=== PATIENT | male | born 1935 | race Caucasian/White ===

== ENCOUNTER → 2017-07-25 12:28 | Outpatient (CLI) | payer MEDICARE, SELFPAY ==
--- NOTE | 2017-07-25 | DI.RAD.S_ITS ---
PROCEDURE: XR HAND LT MIN 3V INDICATIONS: PAIN IN LEFT HAND TECHNIQUE: 3 views of the hand(s) acquired. COMPARISON: None. FINDINGS: Bones: No fractures or dislocations. Carpal bones are normally aligned. No suspicious bony lesions. Generalized osteopenia. 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 Moderately severe at the IP joint of the thumb and DIP joints of the fingers. Soft tissues: No suspicious soft tissue calcifications. IMPRESSION: Osteoarthritis Dictated by: Manas Arriaga M.D. on 07/25/2017 at 13:08 Approved by: Manas Arriaga M.D. on 07/25/2017 at 13:10
== END ==
PROVIDERS: Family Provider Internal Medicine; PCP Internal Medicine; Visit Provider Student in an Organized Health Care Education/Training Program
DX: M19.042 Primary osteoarthritis, left hand (principal)
CPT/HCPCS: 73130

== ENCOUNTER 2017-12-07 06:35 | Day surgery (SDC) | payer MEDICARE, SELFPAY ==
[2017-11-30 14:47] VITALS: BMI 24.3
[2017-12-07] VITALS (7 sets, daily range): BP systolic 122–157; BP diastolic 55–74; PULSE 60–79; RESP 12–18; TEMP 36.1–36.2; O2SAT 93–98; BMI 24.3
[2017-12-07] MEDS: LACTATED RINGERS 1,000 ML 42 ML IV (08:27)
--- NOTE | 2017-12-07 08:52 | PM.PREOP ---
Pre-operative Note Interval Note Pre-op Check: Yes History & Physical Reviewed by Physician Changes: No
[2017-12-07] MEDS: CEFAZOLIN 2 GM/100 ML FROZ.PIGGY IV (08:55)
--- NOTE | 2017-12-07 09:22 | SUR.OPER ---
Supine on padded OR bed, head on pillow, arms secured on padded arm boards at <90 degrees abduction, legs uncrossed, safety belt at thigh, tape over blanket over lower legs.
[2017-12-07] MEDS: BUPIVACAINE 0.5% (PF) VIAL 30 ML INJ (09:54)
[2017-12-07] MEDS: SODIUM CHLORIDE IRRIG SOLUTION 250 ML, CEFAZOLIN VIAL 1 GM IRR (09:57)
[2017-12-07] MEDS: LIDOCAINE 1% W/EPI INJ 20 ML INJ (09:57)
--- NOTE | 2017-12-07 10:32 | PM.OP.1 ---
Operative Date/Time/Diagnoses Date of procedure: 12/07/17 Time of procedure: 10:32 Pre-op diagnosis: Bilateral Inguinal Hernias Post-op diagnosis: same Procedure & Clinicians Procedure: Bilateral Inguinal Hernia Repair Same procedure as scheduled: Yes Indications: Enlarging and painful bilateral inguinal hernias limiting the patients lifestyle and activity Surgeon: Jess Simpson Click Yes if Unassisted: Yes Anesthesia Type: General (Goetter) and Local Operative Notes Findings: Two large direct inguinal hernias Closure Type: primary Specimen(s): none sent Implants & Drains: Two large Pro Loop plug and patch implant sets Estimated Blood Loss (mL): 20 Procedure in detail: After obtaining informed consent the patient was brought to the operating room and placed in the supine position on the operating table. Following successful induction of general endotracheal anesthesia, appropriate padding of all bony prominences, and a placement of appropriate monitors, the left groin is prepped and draped in a standard surgical fashion. A timeout was held per protocol. We began the procedure by infiltrating a mixture of local anesthetics medial to the anterior superior iliac spine on the left. Following this, an incision was fashioned in the left groin superior and lateral to the left pubic tubercle. This area was infiltrated with local anesthetic to create a field block. A skin incision was created here and carried down through the skin and subcutaneous tissue to reveal Eduard's fascia below. Eduard's fascia was divided sharply revealing the external oblique aponeurosis below. More local anesthetic was infiltrated in the aponeurosis and it was opened in the direction of its fibers. The spermatic cord and its contents were surrounded and retracted gently using a Dolomite drain. The hernia sac was identified and carefully dissected free from the cord structures. The hernia sac proved to be a portion of colon. This was carefully placed back into the abdominal cavity without injury. A large portion of PROloop mesh was chosen for the repair. The plug was soaked in Ancef solution and deployed into the defect in the internal ring. This was sewn into place with interrupted Vicryl sutures in 2 positions. The overlying mesh layer was sewn to the pubic tubercle with an air knot of Vicryl suture. The lateral leaflets were then carefully placed around the spermatic cord and sewn together with another suture. Tags of the overlying mesh were then tucked under the external oblique aponeurosis. The wound was checked for hemostasis and irrigated with Ancef-containing solution. The edges of the external oblique aponeurosis were approximated and closed with a running Vicryl suture. The wound was irrigated once again and Eduard's fascia was closed with a running suture. Monocryl sutures were placed in the skin. We continued our procedure on the right side with an identical repair. Once again the hernia sac proved to be a portion of colon. This was again reduced without injury and repaired as above with a large Pro Loop plug and patch implant. The wound was again checked for hemostasis and irrigated with warm saline solution. It was aspirated free of all fluid and closed in layers with Vicryl and Monocryl suture. Exofin was applied to both incisions. All sponge, needle, and instrument counts were correct at the conclusion of the case. The patient was allowed to awaken from anesthesia without difficulty and taken to the post anesthesia care unit in good condition. Complications: none Condition: stable Disposition: PACU Plan for aftercare: 1. Discharge to home 2. Follow up with me in 2-3 weeks
--- NOTE | 2017-12-07 11:33 | SUR.PHASEII ---
discharge instructions given to daughter and pt. Both state they understand them. Pt states he feels better than he thought he would. States he feels like going home. pt tolerated 2 cups of pudding and 2 cranberry juices. Iv d/maggie and surgical sites clean and dry upon d/c. Pt d/maggie in wheelchair with daughter. Denies any pain at present time.
== END 2017-12-07 11:30 ==
LOC: OR 06:37
PROVIDERS: Visit Provider Surgery
PROC: (CPT 49505; principal; 2017-12-07 07:45)
DX: K40.20 Bilateral inguinal hernia, without obstruction or gangrene, not specified as recurrent (principal); I10 Essential (primary) hypertension; J44.9 Chronic obstructive pulmonary disease, unspecified; N40.0 Benign prostatic hyperplasia without lower urinary tract symptoms; K21.9 Gastro-esophageal reflux disease without esophagitis; M54.5 Low back pain; M19.90 Unspecified osteoarthritis, unspecified site; G25.0 Essential tremor
CPT/HCPCS: 49505; C1781; J0690; J1100; J2250; J2405; J2704; J3010

== ENCOUNTER → 2017-12-08 13:30 | Outpatient (CLI) | payer MEDICARE, SELFPAY ==
[2017-12-08 14:25] LABS: Hematocrit 35.2 % (41-53)
[2017-12-08 16:08] LABS: Creatinine Urine Random 42.7 mg/dL; Protein (Total) Urine Random 11 mg/dL (0-12); Protein Creatinine Ratio Urine 0.25 GRAM/24H
[2017-12-08 16:09] LABS: BUN Creatinine Ratio 20.7 (6-22); Blood Urea Nitrogen 29 mg/dL (9-20); Carbon Dioxide 30 mmol/L (22-32); Chloride 95 mmol/L (98-107); Estimated Glomerular Filt Rate 48.6 mL/min (>60); Glucose 83 mg/dL (80-110); HEMOLYSIS < 15 (0-50); Potassium 4.5 mmol/L (3.4-5.1); Sodium 134 mmol/L (137-145)
[2017-12-10 16:37] LABS: Parathyroid Hormone Int 38 pg/mL (14-64)
== END ==
PROVIDERS: Family Provider Student in an Organized Health Care Education/Training Program; PCP Student in an Organized Health Care Education/Training Program; Visit Provider Student in an Organized Health Care Education/Training Program
DX: N05.9 Unspecified nephritic syndrome with unspecified morphologic changes (principal); D64.9 Anemia, unspecified; N25.81 Secondary hyperparathyroidism of renal origin; R80.9 Proteinuria, unspecified
CPT/HCPCS: 36415; 80048; 82570; 83970; 84156; 85014; 85018

== ENCOUNTER → 2018-03-21 08:06 | Outpatient (CLI) | payer MEDICARE, SELFPAY ==
--- NOTE | 2018-03-21 | DI.US.S_ITS ---
PROCEDURE: US ABD AORTA ANEURYSM SCREEN INDICATIONS: Personal history of nicotine dependence TECHNIQUE: Real time scanning was performed of the aorta and iliac arteries, with image documentation. COMPARISON: [facility], CT, THORAX WITHOUT CONTRAST, 04/08/2016, 10:38. FINDINGS: Aorta: Aortic atherosclerosis is identified without aneurysmal dilatation. No occlusion is evident. Proximal aortic diameter measures 1.7 cm. Mid-aorta measures 1.3 cm. Distal aortic diameter is 1.2 cm. Iliac arteries: Right common iliac artery measures 0.8 cm. Left common iliac artery measures 0.7 cm. IMPRESSION: Aortic atherosclerosis. No evidence of an abdominal aortic aneurysm. Dictated by: Koko Meredith M.D. on 03/21/2018 at 8:55 Approved by: Koko Meredith M.D. on 03/21/2018 at 8:56
== END ==
PROVIDERS: Family Provider Student in an Organized Health Care Education/Training Program; PCP Student in an Organized Health Care Education/Training Program; Visit Provider Student in an Organized Health Care Education/Training Program
DX: Z13.6 Encounter for screening for cardiovascular disorders (principal); I70.0 Atherosclerosis of aorta; Z87.891 Personal history of nicotine dependence
CPT/HCPCS: 76706

== ENCOUNTER → 2018-04-24 15:57 | Outpatient (CLI) | payer MEDICARE, SELFPAY ==
--- NOTE | 2018-04-24 16:00 | DI.US.S_ITS ---
PROCEDURE: US SOFT TISSUE HEAD AND NECK INDICATIONS: PAIN LOCATED RIGHT ANTERIOR NECK TECHNIQUE: Real-time scanning was performed of the neck region of interest, with image documentation. COMPARISON: None. FINDINGS: In area of right anterior neck pain and swelling wall stick one week ago no sonographic abnormality is seen. Note is made of atherosclerotic calcification of the carotid arteries. IMPRESSION: No sonographic abnormality in the area of prior pain right anterior neck. Please note that there is identified atherosclerotic calcifications at the carotid arteries and depending on the clinical status followup by dedicated carotid ultrasound may be warranted. Dictated by: Zack Gregory M.D. on 04/24/2018 at 16:58 Approved by: Zack Gregory M.D. on 04/24/2018 at 16:58
== END ==
PROVIDERS: Family Provider Student in an Organized Health Care Education/Training Program; PCP Student in an Organized Health Care Education/Training Program; Visit Provider Student in an Organized Health Care Education/Training Program
DX: M54.2 Cervicalgia (principal); R22.1 Localized swelling, mass and lump, neck; I65.23 Occlusion and stenosis of bilateral carotid arteries
CPT/HCPCS: 76536

== ENCOUNTER → 2018-05-02 12:09 | Outpatient (CLI) | payer MEDICARE, SELFPAY ==
--- NOTE | 2018-05-02 | DI.US.S_ITS ---
PROCEDURE: US CAROTID DOPPLER BI INDICATIONS: UNSPECIFIED ATHEROSCLEROSIS TECHNIQUE: Color and pulse Doppler interrogation was performed of both carotid systems, with image documentation and velocity measurements. COMPARISON: [facility], , CAROTID ARTERY DOPPLER BIL, 05/05/2010, 12:26. FINDINGS: Stenosis calculations are based on SRU (Society of Radiologists in Ultrasound) criteria. Right side: Brachial blood pressure: 150/52 mm Hg. Common carotid artery peak systolic velocity: 197 cm/sec. Internal carotid artery peak systolic velocity: 99 cm/sec. Internal carotid artery end diastolic velocity: 19 cm/sec. External carotid artery peak systolic velocity: 95 cm/sec. ICA/CCA peak systolic ratio: 0.5. Linn scale imaging description: Scattered calcified plaque throughout the distal common carotid artery and bifurcation Percent internal carotid artery stenosis: Less than 50%. Vertebral artery: Flow direction is antegrade. Left side: Brachial blood pressure: 146/64 mm Hg. Common carotid artery peak systolic velocity: 104 cm/sec. Internal carotid artery peak systolic velocity: 148 cm/sec. Internal carotid artery end diastolic velocity: 25 cm/sec. External carotid artery peak systolic velocity: 77 cm/sec. ICA/CCA peak systolic ratio: 1.4. Linn scale imaging description: Scattered calcified plaque at the bifurcation and distal common carotid artery Percent internal carotid artery stenosis: 50-69%. Vertebral artery: Flow direction is antegrade. IMPRESSION: 50-69% left ICA stenosis. Less than 50% right ICA stenosis. Dictated by: Kali Ornelas M.D. on 05/02/2018 at 15:22 Approved by: Kali Ornelas M.D. on 05/02/2018 at 15:24
== END ==
PROVIDERS: PCP Student in an Organized Health Care Education/Training Program; Visit Provider Student in an Organized Health Care Education/Training Program
DX: I65.23 Occlusion and stenosis of bilateral carotid arteries (principal)
CPT/HCPCS: 93880

== ENCOUNTER → 2018-06-30 10:05 | Outpatient (CLI) | payer MEDICARE, SELFPAY ==
--- NOTE | 2018-06-30 10:08 | DI.RAD.S_ITS ---
PROCEDURE: XR LUMBAR SPINE MIN 4V INDICATIONS: low back pain TECHNIQUE: 5 views of the lumbar spine were acquired. COMPARISON: [facility], , SPINE LUMB 2 OR 3VW, 07/12/2016, 10:36. [facility], CR, SPINE LUMB 2 OR 3VW, 04/19/2016, 11:05. [facility], , SPINE LUMB 2 OR 3VW, 01/14/2016, 16:17. [facility] [place], CR, SPINE LUMB 2 OR 3VW, 11/27/2015, 14:47. [facility], , L-SPINE 2-3 VIEWS, 12/30/2015, 8:39. FINDINGS: Bones: 5 nonrib-bearing vertebrae are present. There is prominent dextroscoliotic bony alignment. No vertebral body compression fractures. No suspicious bony lesions. There has been prior fusion between L4 and L5, with interbody disc cage prosthesis at L4-5. Fusion devices comprised of transverse pedicle screws and a single vertical fixation yin are centered on the right. Prominent degenerative disc disease and facet osteoarthritis is present from L2-3 inferiorly. Significant spinal and foraminal stenosis again would be expected. Soft tissues: Overlying bowel gas pattern is normal. No suspicious soft tissue calcifications. Oblique images: No pars defects. 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 Prior fusion procedure as discussed, stable over time. Dictated by: Zack Gregory M.D. on 06/30/2018 at 11:04 Approved by: Zack Gregory M.D. on 06/30/2018 at 11:06
== END ==
PROVIDERS: PCP Student in an Organized Health Care Education/Training Program; Visit Provider Physical Medicine & Rehabilitation
DX: M54.5 Low back pain (principal); M51.17 Intervertebral disc disorders with radiculopathy, lumbosacral region; M47.27 Other spondylosis with radiculopathy, lumbosacral region; M41.86 Other forms of scoliosis, lumbar region; M99.83 Other biomechanical lesions of lumbar region; Z98.1 Arthrodesis status
CPT/HCPCS: 72110; 99214

== ENCOUNTER → 2018-07-08 09:44 | Outpatient (CLI) | payer MEDICARE, SELFPAY ==
--- NOTE | 2018-07-08 09:46 | DI.MRI.S_ITS ---
PROCEDURE: MR LUMBAR SPINE WO CON INDICATIONS: eval TECHNIQUE: Noncontrast sagittal T1 spin echo and T2 fast echo, sagittal STIR, axial T1 and T2 fast spin echo through the lumbar spine. In cases with scoliosis, additional coronal T2 fast spin echo may be performed. COMPARISON: [facility], MR, MR LUMBAR SPINE WO CON, 03/24/2015, 10:58. [facility], CR, SPINE LUMB 2 OR 3VW, 07/12/2016, 10:36. FINDINGS: Image quality: Excellent. Alignment and Curvature: There is trace L4-L5 and L5-S1 anterolisthesis. There is approximately 17? of convex-right scoliosis. Bones: Postsurgical changes compatible with L4-L5 right posterior and interbody fusion noted. Reactive endplate changes noted adjacent to the L1-L2, L2-L3-L3-L4, L4-L5 and L5-S1 discs.. No acute vertebral body compression fractures. Spinal Cord: Conus medullaris terminates at the L1-2 disc level. Visualized cord demonstrates normal signal and size. Paraspinous Soft Tissues: No paravertebral masses. L1-L2: Loss of disc signal and height. Mild to moderate diffuse disc bulge. Mild bilateral facet hypertrophy. Mild narrowing of the central canal. Mild right and moderate left neural foraminal narrowing. No neural impingement. L2-L3: Loss of disc signal and height. Moderate, diffuse disc bulge. Mild bilateral facet hypertrophy. Moderate narrowing of the central canal. Moderate right and severe left neural foraminal narrowing with compression of the exiting left L2 nerve root. L3-L4: Loss of disc signal and height. Moderate, diffuse disc bulge. Moderate bilateral facet hypertrophy. Mild to moderate narrowing of the central canal. Severe bilateral neural foraminal narrowing and compression of the exiting L3 nerve roots. L4-L5: Loss of disc signal. Mild, diffuse disc bulge. Mild left and severe right facet hypertrophy. No central stenosis. Severe right and moderate left neural foraminal narrowing with compression of the exiting right L4 nerve root. L5-S1: Loss of disc signal and height. Mild diffuse disc bulge. Moderate bilateral facet hypertrophy. No central stenosis. Severe bilateral neural foraminal narrowing with compression of the exiting L5 nerve roots. IMPRESSION: 1. Convex-right scoliosis. 2. Postsurgical changes. 3. Multilevel degenerative disc disease. 4. Multilevel facet arthropathy. 5. Moderate L2-L3 central canal narrowing. [id number] L3-L4 central canal narrowing. Mild L1-L2 Central canal 6. Severe bilateral L3-L4 and L5-S1 neural foraminal narrowing. Moderate right and severe left L2-L3 neural foraminal narrowing. Severe right and moderate left L4-L5 neural foraminal narrowing. 7. Compression of the exiting left L2 nerve root, the exiting bilateral L3 nerve roots, the exiting right L4 nerve root and the exiting bilateral L5 nerve root secondary to neural foraminal narrowing. Please correlate clinically Dictated by: Esthela Jolley MD, PhD on 07/10/2018 at 15:40 Approved by: Esthela Jolley MD, PhD on 07/10/2018 at 15:47
== END ==
PROVIDERS: PCP Student in an Organized Health Care Education/Training Program; Visit Provider Physical Medicine & Rehabilitation
DX: M51.16 Intervertebral disc disorders with radiculopathy, lumbar region (principal); M51.17 Intervertebral disc disorders with radiculopathy, lumbosacral region; M47.26 Other spondylosis with radiculopathy, lumbar region; M47.27 Other spondylosis with radiculopathy, lumbosacral region; M48.061 Spinal stenosis, lumbar region without neurogenic claudication; M48.07 Spinal stenosis, lumbosacral region; M41.86 Other forms of scoliosis, lumbar region; Z98.1 Arthrodesis status
CPT/HCPCS: 72148

== ENCOUNTER 2018-08-01 13:16 | Outpatient (CLI) | payer MEDICARE, SELFPAY ==
[2018-08-01] VITALS (7 sets, daily range): BP systolic 135–163; BP diastolic 51–86; PULSE 41–50; RESP 16–18; TEMP 36.2; O2SAT 95–100
--- NOTE | 2018-08-01 13:17 | DI.RAD.S_ITS ---
PROCEDURE: PAIN L/S TRANSFORAMINAL INJECT INDICATIONS: SPONDYLOSIS FINDINGS: Fluoroscopic spot filming was performed to verify placement of spinal needles at the L4-L5 level(s), as labeled on the films. Appropriate location(s) of the needle tip(s) was confirmed by injection of iodinated contrast. Dictated by: Kali Ornelas M.D. on 08/01/2018 at 14:59 Approved by: Kali Ornelas M.D. on 08/01/2018 at 14:59
[2018-08-01] MEDS: MIDAZOLAM 5 MG/5 ML VIAL IV (14:10)
[2018-08-01] MEDS: fentaNYL 100 MCG/2 ML INJ 50 MCG IV (14:11)
[2018-08-01] MEDS: IOPAMIDOL 15 ML VIAL 3 ML INJ (14:16)
[2018-08-01] MEDS: BETAMETHASONE 30 MG/5 ML MDV 6 MG INJ (14:16)
[2018-08-01] MEDS: BUPIVACAINE 0.25% (PF) VIAL 2 ML INJ (14:16)
[2018-08-01] MEDS: DEXAMETHASONE 10 MG/ML VIAL 20 MG INJ (14:17)
--- NOTE | 2018-08-01 14:29 | P.PCN_ITS ---
Procedures Date/Time Date of procedure: 08/01/18 Time of procedure: 14:24 General Procedure description: PREOP DIAGNOSIS 1. FORMAINAL STENOSIS WITH LE SYMPTOMS POST OP DIAGNOSIS 1. FORMAINAL STENOSIS WITH LE SYMPTOMS PROCEDURES 1. FLUOROSCOPICALLY GUIDED CONTRAST CONTROLLED TRANSFORAMINAL EPIDURAL STEROID INJECTION - RIGHT L4/5 TFESI PHYSICIAN: Jaswinder Franco DO INDICATIONS: Hardeep is referred by Dr. Cote for treatment of Foraminal Stenosis with Right LE Symptoms FINDINGS Foraminal Nerve Root Compression secondary to disc disease and facet hypertrophy DESCRIPTION OF PROCEDURE: Following denial of allergy and review of potential side effects and complications, including, but not necessarily limited to, infection, allergic reaction, local tissue breakdown, stroke, temporary or permanent nerve injury, paralysis, and possible , the patient indicated that the patient understood and agreed to proceed. An informed consent document was signed by the patient, witnessed by a nurse, and placed in the patient's chart. Additionally, other treatment options including medications, modalities, and physical therapy were reviewed with the patient. After review of previous anaesthesic history and IV conscious sedation the patient was deemed safe to proceed with todays procedure with IV conscious sedation as ASA class II designation. Safety time-out was performed to confirm patient ID, procedure to be performed and site of procedure. IV sedation was accomplished with a combination of 2mg of Versed and 50mcg of Fentanyl was administered by the RN after DO order, titrated to patient comfort during the course of the procedure while the patient remained responsive to all verbal commands In the prone position following sterile prep and drape of the lumbar region, the Right L4/5 posterior neuroforamen was identified fluoroscopically. The skin was anesthetized via a 25-gauge 1.5-inch needle with 1% lidocaine solution. At this point, a 25-gauge 3.5-inch spinal needle was atraumatically introduced and advanced under fluoroscopic guidance through the posterior Right L4/5 neuroforamen to approximately the anterior aspect of the canal. Depth was confirmed on lateral view. Following negative aspiration, injection of approximately 1.5 cc of Isovue 200 under live fluoroscopy in the AP view confirmed excellent flow along the nerve root, into the epidural space without vascular or intrathecal uptake observed Radiological data, including multiple fluoroscopic views of the lumbosacral spine, reveal a spinal needle at the right L4/5 posterior neuroforamen. Subsequent views show flow of contrast material flowing superiorly and inferiorly along the nerve root confirming epidural flow. Subsequently, a test dose of 1.5 cc of 1% lidocaine solution was administered and patient was observed for two minutes for signs or symptoms of complications, including abdominal pain, shortness of breath, bilateral upper or lower extremity weakness, nausea and vomiting, prior to steroid injection. At this point, a total of 2cc or 20mg of dexamethasone was injected without incident. The procedure tolerated the procedure well without signs or symptoms of complications prior to transfer to the recovery area continued monitoring without incident.The patient was then transferred to the recovery area where they were observed for an appropriate time after the injection. The patient reported a VAS score of 7 prior to the procedure and a post- procedure VAS of 0. Total Fluoroscopy Time: 20.9 seconds Total Conscious Sedation Time: 24min POST OP INSTRUCTIONS The patient was provided a Pain Log to continue to record their response to the target-specific procedure prior to follow-up visit with their referring physician. Additionally, specific post-injection care instructions and a contact number to our office were provided if concerns arise regarding possible complications associated with the procedure are suspected. Jaswinder Franco DO Complications: none
--- NOTE | 2018-08-01 15:13 | PC.NURSE ---
pt returned from procedure via wheelchair awake and alert but left leg is numb and he is unable to feel it. Two person minimal assist to get him into the chair from the w/c. REsumed monitoring from Tonia ZUNIGA.
--- NOTE | 2018-08-01 15:29 | PC.NURSE ---
Pt's leg is still a little numb, he can raise his left leg up but when he goes to stand it's still not under him steady. Pt will continue to wait until his feeling comes back. Pt's here with daughter Cheyenne.
--- NOTE | 2018-08-01 16:05 | PC.NURSE ---
Attempted standing patient again at 1350 and he was not able to keep balance without support, says bottom of left foot is still spongy. Then Dr. Franco arrived and tested him out again at 1600. He thought maybe 5-10 minutes more and pt will be able to go.
--- NOTE | 2018-08-01 16:26 | PC.NURSE ---
Pt rechecked at 1615 and is stable to go home, daughter taking him out to eat at [employer], then on home to [facility]. Assiste pt out to car in a wheelchair and he was able to get into the car safely.
== END 2018-08-01 16:29 ==
LOC: RAD 13:17
PROVIDERS: PCP Student in an Organized Health Care Education/Training Program; Visit Provider Physical Medicine & Rehabilitation
DX: M48.061 Spinal stenosis, lumbar region without neurogenic claudication (principal); M51.16 Intervertebral disc disorders with radiculopathy, lumbar region
CPT/HCPCS: 64483; 99152; J0702; J1100; J2250; J3010

== ENCOUNTER → 2018-09-23 13:39 | Outpatient (CLI) | payer OTHER, SELFPAY ==
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
== END ==
PROVIDERS: PCP Student in an Organized Health Care Education/Training Program; Visit Provider Student in an Organized Health Care Education/Training Program
DX: M54.5 Low back pain (principal); M54.32 Sciatica, left side; M51.34 Other intervertebral disc degeneration, thoracic region; M47.816 Spondylosis without myelopathy or radiculopathy, lumbar region; M43.17 Spondylolisthesis, lumbosacral region; M43.16 Spondylolisthesis, lumbar region
CPT/HCPCS: 72072; 72100

== ENCOUNTER → 2018-10-24 11:07 | Outpatient (CLI) | payer OTHER, SELFPAY ==
--- NOTE | 2018-10-24 | DI.RAD.S_ITS ---
PROCEDURE: XR CERVICAL SPINE 4V OR 5V INDICATIONS: NECK PAIN TECHNIQUE: 5 views of the cervical spine acquired. COMPARISON: None. FINDINGS: Bones: No fractures or dislocations to the C7 level. Oblique images demonstrate no bony foraminal stenoses. Severe diffuse disc space narrowing. Multilevel degenerative endplate sclerosis and spurring. Diffuse facet arthropathy. Straightening of the normal lordotic curvature. Grade 1 anterolisthesis of C2 on C3 and C7 on T1. On the right, severe narrowing of the C6-C7 and C7-T1 foramen. There is moderate bony C5-C6 foraminal stenosis. On the left, there is mild bony narrowing of the C3-C4 and C6-C7 foramen Soft tissues: No prevertebral soft tissue swelling. Bilateral carotid calcifications IMPRESSION: Severe multilevel cervical spondylosis and facet arthropathy as above. Bilateral carotid atherosclerosis. Bilateral bony foraminal stenosis as above. Dictated by: Kali Ornelas M.D. on 10/24/2018 at 14:43 Approved by: Kali Ornelas M.D. on 10/24/2018 at 14:45
== END ==
PROVIDERS: PCP Student in an Organized Health Care Education/Training Program; Visit Provider Student in an Organized Health Care Education/Training Program
DX: M54.2 Cervicalgia (principal); M47.812 Spondylosis without myelopathy or radiculopathy, cervical region; M48.02 Spinal stenosis, cervical region; I65.23 Occlusion and stenosis of bilateral carotid arteries
CPT/HCPCS: 72050

== ENCOUNTER 2019-08-14 08:10 | Outpatient (CLI) | payer MEDICARE, SELFPAY ==
[2019-08-14] VITALS (7 sets, daily range): BP systolic 128–168; BP diastolic 56–113; PULSE 48–67; RESP 14–156; TEMP 36.3; O2SAT 96–100
--- NOTE | 2019-08-14 08:36 | DI.RAD.S_ITS ---
PROCEDURE: PAIN L/S TRANSFORAM INJECT BRUNO COMPARISON: None. INDICATIONS: SPONDYLOSIS FINDINGS: Normal needle tip positioning for left-sided L4-5 epidural steroid injection. IMPRESSION: Expected anatomic positioning of left-sided spinal needle tip for epidural steroid injection. Dictated by: Zack Gregory M.D. on 08/14/2019 at 10:58 Approved by: Zack Gregory M.D. on 08/14/2019 at 10:59
[2019-08-14 09:27] LABS: COVID19 -Nasal RAPID Negative (Negative)
[2019-08-14] MEDS: BUPIVACAINE 0.25% (PF) VIAL 2 ML INJ (09:49)
[2019-08-14] MEDS: MIDAZOLAM 5 MG/5 ML VIAL IV (09:49)
--- NOTE | 2019-08-14 10:03 | PM.PROC.1 ---
Procedures Date/Time Date of procedure: 08/14/19 Time of procedure: 10:03 General Procedure description: PREOP DIAGNOSIS 1. FORMAINAL STENOSIS WITH LE SYMPTOMS POST OP DIAGNOSIS 1. FORMAINAL STENOSIS WITH LE SYMPTOMS PROCEDURES 1. FLUOROSCOPICALLY GUIDED CONTRAST CONTROLLED TRANSFORAMINAL EPIDURAL STEROID INJECTION - LEFT L4/5 PHYSICIAN: Jaswinder Franco DO INDICATIONS: Hardeep is referred by Svitlana Vivar for treatment of Foraminal Stenosis with Left LE Symptoms FINDINGS Foraminal Nerve Root Compression secondary to disc disease and facet hypertrophy DESCRIPTION OF PROCEDURE: Following review of allergy and review of potential side effects and complications, including, but not necessarily limited to, infection, allergic reaction, local tissue breakdown, stroke, temporary or permanent nerve injury, paralysis, and possible , the patient indicated that the patient understood and agreed to proceed. An informed consent document was signed by the patient, witnessed by a nurse, and placed in the patient's chart. Additionally, other treatment options including medications, modalities, and physical therapy were reviewed with the patient. After review of previous anaesthesic history and IV conscious sedation the patient was deemed safe to proceed with todays procedure with IV conscious sedation as ASA class II designation. Safety time-out was performed to confirm patient ID, procedure to be performed and site of procedure. IV sedation was accomplished with a combination of 3mg of Versed administered by the RN after DO order, titrated to patient comfort during the course of the procedure while the patient remained responsive to all verbal commands In the prone position following sterile prep and drape of the lumbar region, the left L4/5 posterior neuroforamen was identified fluoroscopically. The skin was anesthetized via a 25-gauge 1.5-inch needle with 1% lidocaine solution. At this point, a 25-gauge 3.5-inch spinal needle was atraumatically introduced and advanced under fluoroscopic guidance through the posterior left L4/5 neuroforamen to approximately the anterior aspect of the canal. Depth was confirmed on lateral view. Following negative aspiration, injection of approximately 1.5 cc of Isovue 200 under live fluoroscopy in the AP view confirmed excellent flow along the nerve root, into the epidural space without vascular or intrathecal uptake observed Radiological data, including multiple fluoroscopic views of the lumbosacral spine, reveal a spinal needle at the left L4/5 posterior neuroforamen. Subsequent views show flow of contrast material flowing superiorly and inferiorly along the nerve root confirming epidural flow. Subsequently, a test dose of 1.5 cc of 1% lidocaine solution was administered and patient was observed for two minutes for signs or symptoms of complications, including abdominal pain, shortness of breath, bilateral upper or lower extremity weakness, nausea and vomiting, prior to steroid injection. At this point, a total of 3cc or 20mg of dexamethasone and 6mg of betamethasone was injected without incident. The procedure tolerated the procedure well without signs or symptoms of complications prior to transfer to the recovery area continued monitoring without incident. The patient was then transferred to the recovery area where they were observed for an appropriate time after the injection. The patient reported a VAS score of 7 prior to the procedure and a post-procedure VAS of 0. Total Fluoroscopy Time: 6 seconds Total Conscious Sedation Time: 24min POST OP INSTRUCTIONS The patient was provided a Pain Log to continue to record their response to the target-specific procedure prior to follow-up visit with their referring physician. Additionally, specific post-injection care instructions and a contact number to our office were provided if concerns arise regarding possible complications associated with the procedure are suspected. Jaswinder Franco DO Complications: none
[2019-08-14] MEDS: IOPAMIDOL 15 ML VIAL 3 ML INJ (10:12)
[2019-08-14] MEDS: BETAMETHASONE 30 MG/5 ML MDV 6 MG INJ (10:13)
[2019-08-14] MEDS: DEXAMETHASONE 10 MG/ML VIAL 20 MG INJ (10:13)
--- NOTE | 2019-08-14 10:18 | PC.NURSE ---
Pt tolerated procedure well, assisted pt off table to and transported to Pre procedure room for continued monitoring by NADIA Mcguire
== END 2019-08-14 10:25 | disposition home or self-care (01) ==
PROVIDERS: Registered Nurse; PCP Student in an Organized Health Care Education/Training Program; Referring Provider Physical Medicine & Rehabilitation; Visit Provider Physical Medicine & Rehabilitation
DX: Z11.59 Encounter for screening for other viral diseases (principal); M48.061 Spinal stenosis, lumbar region without neurogenic claudication; M51.16 Intervertebral disc disorders with radiculopathy, lumbar region
CPT/HCPCS: 64483; 87635; 99152; J0702; J1100; J2250; J3010

== ENCOUNTER 2019-09-13 13:45 | Emergency (ER) | payer MEDICARE, SELFPAY ==
--- NOTE | 2019-09-13 13:55 | ED_ITS ---
HPI - Wound/Laceration <Mili Gonzalez PA-C - Last Filed: 09/13/19 15:07> General Chief Complaint: Wound/Laceration Stated Complaint: cut on index fingerr left hand Time Seen by Provider: 09/13/19 13:47 Source: patient Mode of arrival: Ambulatory Limitations: no limitations History of Present Illness HPI narrative: This is a well-appearing ambulatory and alert 84-year-old with an extensive medical history, who presents with an isolated complaint of a laceration to his left index finger. He said this happened around noon today when he was slicing an apple and ?the Apple won; well actually the apple-core won!? He says he was using a regular kitchen knife, and it did not bleed a whole lot because he immediately put direct pressure on the area. He covered it with a Band-Aid. He says that he went to the local clinic in [place] but they were closed because it was lunchtime he then decided to come here. He has very little pain and does not want any pain medicine today. He notes he is supposed to go fishing in 10 days for a long trip and hopes that he will be healed by then, he also asks for a finger caught or something he can use so that he can continue to do dishes and take care of these sorts of tasks at home while he is healing. He denies any numbness, tingling, difficulty with range of motion of the affected digit, significant blood loss or any other symptoms, this is an isolated complaint he has no other complaints or concerns today. He states that he last time he was at his primary care doctor they recommended he get a tetanus shot and he was planning to do this at the drug store but he did not yet. Onset (ago): hour(s) (2) Location: other (Finger) Extremity Location: Left: hand (Index finger) Place: home Patient tetanus UTD: No Context: accidental Associated symptoms: pain Treatments prior to arrival: other (Direct pressure and Band-Aid) Related Data Home Medications Medication Instructions Recorded Confirmed alendronate 70 mg PO QWEEK #0 tab 12/18/15 09/12/19 prednisone 2 mg PO QAM #0 12/18/15 09/12/19 tofacitinib 10 mg tablet 10 mg PO ONCE tab 11/25/17 09/12/19 tofacitinib [Xeljanz XR] 11 mg PO DAILY 11/30/17 09/12/19 tamsulosin 0.4 mg capsule 0.8 mg PO QPM #0 cap 12/20/17 09/12/19 Fish Oil 1,400 mg PO DAILY 07/24/18 09/12/19 losartan 50 mg tablet 100 mg PO QDAY #0 tab 07/24/18 09/12/19 vitamin d with calcium 600 mg PO .qday 07/24/18 09/12/19 acetaminophen 500 mg tablet 1,000 mg PO Q6H PRN 08/16/18 09/12/19 cbd oil TOPICAL 11/15/18 09/12/19 cbd tinture SUBLINGUAL 11/15/18 09/12/19 fluticasone propionate 115 INHALATION 09/12/19 09/12/19 mcg-salmeterol 21 mcg/actuation HFA inhaler Previous Rx's Medication Instructions Recorded cephalexin [Keflex] 500 mg PO TID #15 cap 09/15/19 Allergies Allergy/AdvReac Type Severity Reaction Status Date / Time azithromycin [AZITHROMYCIN] AdvReac Severe GI UPSET, Verified 09/13/19 14:00 DIARRHEA levofloxacin [LEVOFLOXACIN] AdvReac Severe LT Verified 09/13/19 14:00 ACHILLES TENDINITIS/Weakness meloxicam [MELOXICAM] AdvReac Intermediate RECTAL Verified 09/13/19 14:00 BLEEDING, GI UPSET doxycycline AdvReac Unknown GI upset, Verified 09/13/19 14:00 diarrhea Review of Systems <Mili Gonzalez PA-C - Last Filed: 09/13/19 15:07> Review of Systems Narrative: GENERAL: Denies chills, fatigue, malaise, fever, sweats. HEENT: Denies sinus pain, ear pain, sore throat, difficulty swallowing, dizziness. RESPIRATORY: Denies dyspnea, cough, wheezing, hemoptysis, sputum. CARDIOVASCULAR: Denies chest pain, palpitations, orthopnea, edema, GASTROINTESTINAL: Denies nausea, vomiting, abdominal pain, diarrhea, constipation, melena. : Denies dysuria, frequency, incontinence, hematuria, urinary retention. MUSCULOSKELETAL: denies weakness, joint pain, or bony pain SKIN: Positive for a laceration to his left index finger not affecting the nail. Denies rash, skin lesions, or other NEUROLOGIC: Denies weakness, headache, numbness, change in speech, confusion, seizures, incoordination. PSYCHIATRIC: No concerning psychosocial issues. 12 point review of systems is negative except for those stated above Patient History <Mili Gonzalez PA-C - Last Filed: 09/13/19 15:07> Medical History Anemia (Chronic) Arthritis (Acute) Fan's esophagus (Chronic) Basal cell carcinoma (Inactive) Benign prostatic hyperplasia (Chronic) Bladder neoplasm (Resolved) Carotid stenosis, bilateral (Chronic) Cervical spine degeneration (Chronic) Constipation (Acute) COPD (chronic obstructive pulmonary disease) (Chronic) Cough (Acute) Eczema (Acute) Edema (Acute) Enlarged prostate (Acute) Essential tremor (Chronic) Gastroesophageal reflux disease (Chronic) History of bladder cancer (Acute) History of pneumonia (Acute) Hyperlipidemia (Chronic) Hypertension (Chronic) Impaired vision (Acute) Kidney stones (Acute) Low back pain (Acute) Lumbar stenosis (Chronic) Osteoarthritis (Chronic) Osteoporosis (Chronic) PSA elevation (Chronic) Psoriasis (Chronic) Psoriatic arthritis (Chronic) Shortness of breath (Acute) Sinus drainage (Acute) TIA (transient ischemic attack) (Acute) Urinary frequency (Acute) Surgical History History of back surgery (Acute) History of carpal tunnel release (Inactive) History of knee surgery (Inactive) History of lumbar surgery (Inactive) History of thumb surgery (Acute) History of total knee arthroplasty (Acute) History of total right knee replacement (Inactive) Status post left rotator cuff repair (Inactive) Status post right rotator cuff repair (Inactive) Social History marital status: unmarried,single number of children: 5 household members: none lives independently: Yes caregiver/support person: No occupational status: other 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 Well-nourished, well-developed patient, in mild distress. HEAD: Atraumatic. Normocephalic. EYES: Pupils equal round and reactive. Extraocular motions intact. No scleral icterus. No injection or drainage. ENT: Nose without bleeding, purulent drainage. Throat without erythema, tonsillar hypertrophy or exudate. Airway patent. NECK: Trachea midline. Non tender CARDIOVASCULAR: Regular rate and rhythm without murmurs, gallops, or rubs. RESPIRATORY: Clear to auscultation. Breath sounds equal bilaterally. No wheezes, rales, or rhonchi. GASTROINTESTINAL: Abdomen soft, non-tender, nondistended. EXTREMITIES: Range of motion of the affected extremities intact, slightly delayed due to pain and discomfort. Capillary refill of the affected extremity and finger is less than 2 seconds. No edema or joint tenderness. Distal pulses are intact and equal. BACK: Nontender without deformity or crepitance. No flank tenderness. NEURO: AOx3. Sensation is intact in the affected extremity SKIN: There is a curvilinear laceration approximately 2.5 cm in length on the posterior 2nd finger of the left hand; it is proximal to the nail and DIP joint not crossing the DIP. No other rash or erythema of visible areas. Initial Vital Signs Initial Vital Signs: Vital Signs Temperature 98.0 F 09/13/19 13:58 Pulse Rate 61 09/13/19 13:58 Respiratory Rate 16 09/13/19 13:58 Blood Pressure 180/75 H 09/13/19 13:58 Pulse Oximetry 98 09/13/19 13:58 <Luciana Molina DO - Last Filed: 09/18/19 07:47> Initial Vital Signs Initial Vital Signs: Vital Signs Temperature 98.0 F 09/13/19 13:58 Pulse Rate 61 09/13/19 13:58 Respiratory Rate 16 09/13/19 13:58 Blood Pressure 180/75 H 09/13/19 13:58 Pulse Oximetry 98 09/13/19 13:58 Procedures <Mili Gonzalez PA-C - Last Filed: 09/13/19 15:07> Laceration Repair Laceration 1: Site: hand (index finger) Side (If applicable): left Size (cm): 2.5 Description: linear (curvilinear) Depth: simple, single layer Local Anesthetic: lidocaine 1% and with bicarb Amount of anesthesia used (mL): 7 Pre-repair: wound explored, irrigated extensively and deep structures intact Skin layer closed with: nylon Size (cm): 5-0 Number of sutures: 5 Technique: simple, interrupted Scores <Mili Gonzalez PA-C - Last Filed: 09/13/19 15:07> GCS Maribel coma scale eye opening: Spontaneous Maribel coma scale verbal response: Orientated [place] coma scale motor response: Obey commands Maribel coma scale total score: 15 Course <Mili Gonzalez PA-C - Last Filed: 09/13/19 15:07> Orders Ordered: Discontinued Medications Diphtheria/Tetanus/Acell Pertussis (Adacel) 0.5 ml IM .ONCE ONE Stop: 09/13/19 14:22 Last Admin: 09/13/19 14:23 Dose: 0.5 ml Documented by: MINISTERIO Lidocaine/Sodium Bicarbonate (Buffered Lidocaine 10 Ml Syr) 10 ml INJ NOW ONE Stop: 09/13/19 14:07 Last Admin: 09/13/19 14:23 Dose: 10 ml Documented by: MINISTERIO Tetanus/Diphtheria Toxoids (Td) 0.5 ml IM .ONCE ONE Stop: 09/13/19 14:07 Last Admin: 09/13/19 14:23 Dose: Not Given Documented by: MINISTERIO Vital Signs Vital signs: Vital Signs - 8 hr 09/13/19 13:58 Temperature 98.0 F Pulse Rate 61 Respiratory Rate 16 Blood Pressure 180/75 H Pulse Oximetry 98 <Luciana Molina DO - Last Filed: 09/18/19 07:47> Orders Ordered: Discontinued Medications Diphtheria/Tetanus/Acell Pertussis (Adacel) 0.5 ml IM .ONCE ONE Stop: 09/13/19 14:22 Last Admin: 09/13/19 14:23 Dose: 0.5 ml Documented by: MINISTERIO Lidocaine/Sodium Bicarbonate (Buffered Lidocaine 10 Ml Syr) 10 ml INJ NOW ONE Stop: 09/13/19 14:07 Last Admin: 09/13/19 14:23 Dose: 10 ml Documented by: MINISTERIO Tetanus/Diphtheria Toxoids (Td) 0.5 ml IM .ONCE ONE Stop: 09/13/19 14:07 Last Admin: 09/13/19 14:23 Dose: Not Given Documented by: MINISTERIO Vital Signs Vital signs: Vital Signs - 8 hr 09/13/19 13:58 Temperature 98.0 F Pulse Rate 61 Respiratory Rate 16 Blood Pressure 180/75 H Pulse Oximetry 98 MDM - Wound/Laceration <Mili Gonzalez PA-C - Last Filed: 09/13/19 15:07> Differential Diagnosis Differential diagnosis: Likely laceration and other (Risk of infection, tendon injury, bone injury, vascular injury, nerve injury) Medical Records Attestation: I reviewed the patient's medical records. Imaging Data Extremity x-ray #1: Attestation: I personally reviewed and interpreted this imaging study as follows: Radiologist's Impression: [address] [address] XRay Report Signed Patient: Hardeep Rosado FMR#: [id number] : [id number] Age/Sex: 84 / MDate of Service: 09/13/19 Loc: ED Accession Number: [id number] Procedure: XR finger LT min 2V Ordering Provider: Mili Gonzalez P.A-C PROCEDURE: XR FINGER LT MIN 2V INDICATIONS: laceration TECHNIQUE: AP hand, 2 views of the second finger(s) acquired. COMPARISON: None. FINDINGS: Bones: No fractures or dislocations. Moderate to severe osteoarthritic changes throughout interphalangeal joints and first CMC joint are seen. There are features suggestive of erosive osteoarthritis in second and third DIP joints. No suspicious bony lesions. Soft tissues: No suspicious soft tissue calcifications. Soft tissue swelling surrounding second distal interphalangeal joint is seen. No radiopaque foreign body. IMPRESSION: Osteoarthritic changes in left hand and wrist as above. No acute second digit fracture or dislocation. No radiopaque foreign body. Dictated by: Aitlio Nolen M.D. on 09/13/2019 at 14:17 Approved by: Atilio Nolen M.D. on 09/13/2019 at 14:18 [facility] Narrative Medical decision making narrative: This is an 84-year-old gentleman with significant medical history who presents to the emergency department with isolated complaints of a laceration to his left index finger sustained accidentally at home today from a kitchen knife with bleeding controlled immediately. Differential diagnoses considered include laceration vascular injury, nerve injury, bony injury, tendon injury, risk of infection, encounter for tetanus vaccination. I have low concern for injury to bone or tendon sheath. X-ray obtained, laceration cleaned, explored and repaired as above, Tdap given. Patient to follow-up with PCP for suture removal in 7-10 days and re-evaluation, emergency return precautions were discussed, all questions answered. Discharge Plan Departure Patient Disposition: Home Clinical Impression: Laceration of left index finger w/o foreign body w/o damage to nail Qualifiers: Encounter type: initial encounter Qualified Code(s): S61.211A - Laceration without foreign body of left index finger without damage to nail, initial encounter Discharge Date/Time: 09/13/19 15:13 Instructions: How to Care for a Laceration After Repair, DI for Laceration Repair Activity Restrictions/Additional Instructions: You for allowing us to be part of your care in the emergency department today. There is no evidence of an emergent or life threatening illness at this time, but follow up with your doctor in 1-2 days is recommended nonetheless to continue to rule out serious underlying causes of your symptoms. Please call the office for an appointment. Please return to the Emergency Department for any worsening or persistent symptoms. Please take medications as directed. Please follow-up with your primary care physician in 7-10 days for suture removal, also advise you follow-up in the next 2-5 days as needed for re-evaluation. Please try to keep the area dry and avoid soaking baths, you can use antibiotic ointment and a loose Band-Aid for the 1st few days I also recommend that you use the finger splint provided to remind you not to over stress the area where you have your sutures with too much movement. Please see the attached instructions and information regarding care of sutures and lacerations. If you develop numbness, tingling, increasing swelling, pallor, redness, heat in the area of your injury, nausea, vomiting, diarrhea, fever, chills, or any other symptoms of concern to you please do not hesitate to seek medical care immediately. Prescriptions: No Action alendronate 70 MG tablet 70 mg PO QWEEK Qty: 0 RF: 0 prednisone 1 MG tablet 2 mg PO QAM Qty: 0 RF: 0 tamsulosin [Flomax] 0.4 mg capsule 0.8 mg PO QPM Qty: 0 RF: 0 losartan 50 mg tablet 100 mg PO QDAY Qty: 0 RF: 0 tofacitinib [Xeljanz] 10 mg tablet 10 mg PO ONCE RF: 0 tofacitinib [Xeljanz XR] 11 mg Tablet Extended Release 24 Hr 11 mg PO DAILY RF: 0 Fish Oil 1,400 mg PO DAILY RF: 0 cephalexin [Keflex] 500 mg capsule 500 mg PO TID Qty: 15 RF: 0 acetaminophen [Tylenol Extra Strength] 500 mg tablet 1,000 mg PO Q6H PRNRF: 0 cbd oil topical RF: 0 cbd tinture sublingual RF: 0 Advair HFA 115-21 mcg/actuation HFA aerosol inhaler INHALATION RF: 0 vitamin d with calcium 600 mg PO .qday RF: 0 Referrals: Macrina Vivar PA-C [Primary Care Provider] - <Luciana Molina DO - Last Filed: 09/18/19 07:47> Cosign ED Attending Ori Attestation: I was immediately available in the department for consultation. Documentation has been reviewed. I agree with assessment and plan.
[2019-09-13 13:58] VITALS: BP 180/75; PULSE 61; RESP 16; TEMP 36.7; O2SAT 98; BMI 24.0
--- NOTE | 2019-09-13 14:00 | DI.RAD.S_ITS ---
PROCEDURE: XR FINGER LT MIN 2V INDICATIONS: laceration TECHNIQUE: AP hand, 2 views of the second finger(s) acquired. COMPARISON: None. FINDINGS: Bones: No fractures or dislocations. Moderate to severe osteoarthritic changes throughout interphalangeal joints and first CMC joint are seen. There are features suggestive of erosive osteoarthritis in second and third DIP joints. No suspicious bony lesions. Soft tissues: No suspicious soft tissue calcifications. Soft tissue swelling surrounding second distal interphalangeal joint is seen. No radiopaque foreign body. IMPRESSION: Osteoarthritic changes in left hand and wrist as above. No acute second digit fracture or dislocation. No radiopaque foreign body. Dictated by: Atilio Nolen M.D. on 09/13/2019 at 14:17 Approved by: Atilio Nolen M.D. on 09/13/2019 at 14:18
[2019-09-13] MEDS: LIDO 1%/SOD BICARB 8.4% (10ML) 10 ML SYRINGE INJ (14:23)
[2019-09-13] MEDS: TET,DIPH,PERTUSS(ACELL),VAC/PF 0.5 ML SYRINGE IM (14:23)
[2019-09-13 15:13] VITALS: BP 173/70; PULSE 50; RESP 16; O2SAT 99
== END 2019-09-13 15:13 | disposition home or self-care (01) ==
PROVIDERS: Emergency Provider Student in an Organized Health Care Education/Training Program; PCP Student in an Organized Health Care Education/Training Program
DX: S61.211A Laceration without foreign body of left index finger without damage to nail, initial encounter (principal); W26.0XXA Contact with knife, initial encounter; Z23 Encounter for immunization
CPT/HCPCS: 12001; 73140; 90471; 99283; 99284; 90715

== ENCOUNTER 2019-09-15 13:37 | Emergency (ER) | payer MEDICARE, SELFPAY ==
[2019-09-15 13:54] VITALS: BP 151/72; PULSE 51; RESP 17; TEMP 36.6; O2SAT 98
[2019-09-15 14:36] VITALS: BP 167/70; PULSE 57; O2SAT 95
--- NOTE | 2019-09-15 17:16 | ED.RECABL ---
HPI - Recheck/Abnormal Lab/Rx General Chief Complaint: Recheck/Abnormal Lab/Rx Stated Complaint: Possible infection in stitched L index finger Time Seen by Provider: 09/15/19 13:53 Source: patient Mode of arrival: Family Vehicle Limitations: no limitations History of Present Illness HPI narrative: CC:Wound Check HPI: The patient is an 84-year-old male who a couple days ago cut his left index finger with a knife while he was trying to cut the coracoid an apple. He came into the emergency department to have the laceration evaluated and repaired. He states that he did not think it was clean completely and was sutured. Today he took the dressing off an it appeared to be a little bit red and warm to him. There was no bleeding no pustular drainage. He came into the emergency department to have it checked for an infection. He denied any fever chills or sweats as well as any chest pain cough shortness of breath or abdominal pain nausea vomiting or urinary symptoms. Related Data Home Medications Medication Instructions Recorded Confirmed alendronate 70 mg PO QWEEK #0 tab 12/18/15 09/12/19 prednisone 2 mg PO QAM #0 12/18/15 09/12/19 tofacitinib 10 mg tablet 10 mg PO ONCE tab 11/25/17 09/12/19 tofacitinib [Xeljanz XR] 11 mg PO DAILY 11/30/17 09/12/19 tamsulosin 0.4 mg capsule 0.8 mg PO QPM #0 cap 12/20/17 09/12/19 Fish Oil 1,400 mg PO DAILY 07/24/18 09/12/19 losartan 50 mg tablet 100 mg PO QDAY #0 tab 07/24/18 09/12/19 vitamin d with calcium 600 mg PO .qday 07/24/18 09/12/19 acetaminophen 500 mg tablet 1,000 mg PO Q6H PRN 08/16/18 09/12/19 cbd oil TOPICAL 11/15/18 09/12/19 cbd tinture SUBLINGUAL 11/15/18 09/12/19 fluticasone propionate 115 INHALATION 09/12/19 09/12/19 mcg-salmeterol 21 mcg/actuation HFA inhaler Previous Rx's Medication Instructions Recorded cephalexin [Keflex] 500 mg PO TID #15 cap 09/15/19 Allergies Allergy/AdvReac Type Severity Reaction Status Date / Time azithromycin [AZITHROMYCIN] AdvReac Severe GI UPSET, Verified 09/13/19 14:00 DIARRHEA levofloxacin [LEVOFLOXACIN] AdvReac Severe LT Verified 09/13/19 14:00 ACHILLES TENDINITIS/Weakness meloxicam [MELOXICAM] AdvReac Intermediate RECTAL Verified 09/13/19 14:00 BLEEDING, GI UPSET doxycycline AdvReac Unknown GI upset, Verified 09/13/19 14:00 diarrhea Review of Systems Review of Systems Narrative: Review of systems were all negative except for those mentioned in the history of present illness. Patient History Medical History Anemia (Chronic) Arthritis (Acute) Fan's esophagus (Chronic) Basal cell carcinoma (Inactive) Benign prostatic hyperplasia (Chronic) Bladder neoplasm (Resolved) Carotid stenosis, bilateral (Chronic) Cervical spine degeneration (Chronic) Constipation (Acute) COPD (chronic obstructive pulmonary disease) (Chronic) Cough (Acute) Eczema (Acute) Edema (Acute) Enlarged prostate (Acute) Essential tremor (Chronic) Gastroesophageal reflux disease (Chronic) History of bladder cancer (Acute) History of pneumonia (Acute) Hyperlipidemia (Chronic) Hypertension (Chronic) Impaired vision (Acute) Kidney stones (Acute) Low back pain (Acute) Lumbar stenosis (Chronic) Osteoarthritis (Chronic) Osteoporosis (Chronic) PSA elevation (Chronic) Psoriasis (Chronic) Psoriatic arthritis (Chronic) Shortness of breath (Acute) Sinus drainage (Acute) TIA (transient ischemic attack) (Acute) Urinary frequency (Acute) Surgical History History of back surgery (Acute) History of carpal tunnel release (Inactive) History of knee surgery (Inactive) History of lumbar surgery (Inactive) History of thumb surgery (Acute) History of total knee arthroplasty (Acute) History of total right knee replacement (Inactive) Status post left rotator cuff repair (Inactive) Status post right rotator cuff repair (Inactive) Social History marital status: unmarried,single number of children: 5 household members: none lives independently: Yes caregiver/support person: No occupational status: other 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 Does not appear toxic or ill. HEAD: AT/NC EENT: PERRL, FROM of eyes, EXTREMITIES: The laceration is approximately 1.5 cm curvilinear located over the radial aspect of his left index finger. The margins are well opposed. The edges of the laceration are minimally erythematous without any drainage. I did not appreciate any warmth but there was mild swelling and mild plus-minus tenderness. SKIN: No rash, bruising, petechiae or purpura. Located over the hands and arms. NEURO: Awake, alert, oriented, conversive, cranial nerves II-XII are symmetrical , moves all 4 extremities and is ambulatory. MENTAL HEALTH: Does not appear anxious or depressed. Initial Vital Signs Initial Vital Signs: Vital Signs Temperature 97.8 F 09/15/19 13:54 Pulse Rate 51 L 09/15/19 13:54 Respiratory Rate 17 09/15/19 13:54 Blood Pressure 151/72 H 09/15/19 13:54 Pulse Oximetry 98 09/15/19 13:54 Course Vital Signs Vital signs: Vital Signs - 8 hr 09/15/19 13:54 09/15/19 14:36 Temperature 97.8 F Pulse Rate 51 L 57 L Respiratory Rate 17 Blood Pressure 151/72 H 167/70 H Pulse Oximetry 98 95 Discharge Plan Departure Patient Disposition: Home Clinical Impression: Visit for wound check, Wound infection Discharge Date/Time: 09/15/19 14:44 Instructions: DI for Wound Infection Activity Restrictions/Additional Instructions: 1. Now you are able to wash your finger with the laceration in a shower or sink with running water and soap. Pat dry. Apply a thin film of the mupirocin ointment morning and night with a Q-tip and cover with a bandaid. 2. For any pain and discomfort you can take 2 to 3 200 mg ibuprofen tablets every 6 hours. 3. Take the Keflex 500 mg 3 times a day for the next 5 days. 4. If the finger becomes more swollen, more red, draining fluid or becomes excessively tender you need to return to the emergency department. 5. Otherwise follow-up with your doctors to have the sutures removed as previously scheduled. Prescriptions: New cephalexin [Keflex] 500 mg capsule 500 mg PO TID Qty: 15 RF: 0 No Action alendronate 70 MG tablet 70 mg PO QWEEK Qty: 0 RF: 0 prednisone 1 MG tablet 2 mg PO QAM Qty: 0 RF: 0 tamsulosin [Flomax] 0.4 mg capsule 0.8 mg PO QPM Qty: 0 RF: 0 losartan 50 mg tablet 100 mg PO QDAY Qty: 0 RF: 0 tofacitinib [Xeljanz] 10 mg tablet 10 mg PO ONCE RF: 0 tofacitinib [Xeljanz XR] 11 mg Tablet Extended Release 24 Hr 11 mg PO DAILY RF: 0 Fish Oil 1,400 mg PO DAILY RF: 0 acetaminophen [Tylenol Extra Strength] 500 mg tablet 1,000 mg PO Q6H PRNRF: 0 cbd oil topical RF: 0 cbd tinture sublingual RF: 0 Advair HFA 115-21 mcg/actuation HFA aerosol inhaler INHALATION RF: 0 vitamin d with calcium 600 mg PO .qday RF: 0 Referrals: Macrina Vivar PA-C [Primary Care Provider] -
== END 2019-09-15 14:44 | disposition home or self-care (01) ==
PROVIDERS: Emergency Provider Emergency Medicine; PCP Student in an Organized Health Care Education/Training Program
DX: T81.49XA Infection following a procedure, other surgical site, initial encounter (principal)
CPT/HCPCS: 99281

== ENCOUNTER 2019-12-01 15:19 | Emergency (ER) | payer MEDICARE, SELFPAY ==
[2019-12-01] VITALS (12 sets, daily range): BP systolic 159–199; BP diastolic 71–98; PULSE 47–60; RESP 9–27; TEMP 36.6; O2SAT 95–99; BMI 24.0
--- NOTE | 2019-12-01 15:31 | DI.RAD.S_ITS ---
PROCEDURE: XR CHEST 1V INDICATIONS: flu-like symptoms TECHNIQUE: One view of the chest was acquired. COMPARISON: None. FINDINGS: Surgical changes and devices: None. Lungs and pleura: Lungs are clear. No pleural effusions or pneumothorax. Mediastinum: Mediastinal contours appear normal. Heart size is normal. Bones and chest wall: No suspicious bony lesions. Overlying soft tissues appear unremarkable. IMPRESSION: No acute cardiopulmonary process demonstrated radiographically. Dictated by: Brennen Harrington M.D. on 12/01/2019 at 15:56 Approved by: Brennen Harrington M.D. on 12/01/2019 at 15:57
--- NOTE | 2019-12-01 15:38 | ED.URI ---
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 He traveled to visit family and [place] and had phlegm that was hard to clear and when attempting to cough it up it game him a headache. He otherwise feels great and denies fever, chills, N/V. He denies CP or SOB. He denies any nausea or vomiting. He denies any chest pain. He is not dizzy or lightheaded He denies any exposure to persons known to have COVID-19. Related Data Home Medications Medication Instructions Recorded Confirmed alendronate 70 mg PO QWEEK #0 tab 12/18/15 09/12/19 prednisone 2 mg PO QAM #0 12/18/15 09/12/19 tofacitinib 10 mg tablet 10 mg PO ONCE tab 11/25/17 09/12/19 tofacitinib [Xeljanz XR] 11 mg PO DAILY 11/30/17 09/12/19 tamsulosin 0.4 mg capsule 0.8 mg PO QPM #0 cap 12/20/17 09/12/19 Fish Oil 1,400 mg PO DAILY 07/24/18 09/12/19 losartan 50 mg tablet 100 mg PO QDAY #0 tab 07/24/18 09/12/19 vitamin d with calcium 600 mg PO .qday 07/24/18 09/12/19 acetaminophen 500 mg tablet 1,000 mg PO Q6H PRN 08/16/18 09/12/19 cbd oil TOPICAL 11/15/18 09/12/19 cbd tinture SUBLINGUAL 11/15/18 09/12/19 fluticasone propionate 115 INHALATION 09/12/19 09/12/19 mcg-salmeterol 21 mcg/actuation HFA inhaler Previous Rx's Medication Instructions Recorded cephalexin [Keflex] 500 mg PO TID #15 cap 09/15/19 Allergies Allergy/AdvReac Type Severity Reaction Status Date / Time azithromycin [AZITHROMYCIN] AdvReac Severe GI UPSET, Verified 12/01/19 15:32 DIARRHEA levofloxacin [LEVOFLOXACIN] AdvReac Severe LT Verified 12/01/19 15:32 ACHILLES TENDINITIS/Weakness meloxicam [MELOXICAM] AdvReac Intermediate RECTAL Verified 12/01/19 15:32 BLEEDING, GI UPSET doxycycline AdvReac Unknown GI upset, Verified 12/01/19 15:32 diarrhea Review of Systems Constitutional Constitutional: Denies chills, Denies fatigue, Denies fever(s), Denies frequent falls, Reports headache(s), Denies lethargy and Denies weakness Eyes Eyes: Denies change in vision, Denies eye discharge, Denies irritation and Denies loss of vision ENT Ears, Nose, Mouth, and Throat: Denies change in voice, Denies dizziness, Reports headache(s), Reports nasal congestion, Reports nasal discharge, Denies neck pain, Denies sore throat and Denies throat swelling Cardiovascular Cardiovascular: Denies chest pain, Denies irregular heart rhythm, Denies lightheadedness, Denies palpitations, Denies dyspnea, Denies dyspnea on exertion and Denies orthopnea Respiratory Respiratory: Denies cough, Denies dyspnea, Denies dyspnea on exertion and Denies wheezing Gastrointestinal Gastrointestinal: Denies abdominal pain, Denies change in bowel habits, Denies diarrhea, Denies nausea and Denies vomiting Musculoskeletal Musculoskeletal: Denies neck pain and Denies numbness Integumentary/Breasts Skin/Breast: Denies pruritus, Denies erythema, Denies rash and Denies wounds Neurologic Neurologic: Denies behavioral changes, Denies confusion, Denies dizziness, Denies frequent falls, Reports headache(s), Denies loss of vision, Denies numbness and Denies weakness Psychiatric Psychiatric: Denies anxiety, Denies behavioral changes, Denies confusion, Denies depression, Denies homicidal ideation and Denies suicidal ideation Endocrine Endocrine: Denies fatigue, Denies flushing and Denies palpitations Hematologic/Lymphatic Hematologic/Lymphatic: Denies easy bruising Allergic/Immunologic Allergic/Immunologic: Denies urticaria, Denies throat swelling and Denies wheezing Patient History Medical History Anemia (Chronic) Arthritis (Acute) Fan's esophagus (Chronic) Basal cell carcinoma (Inactive) Benign prostatic hyperplasia (Chronic) Bladder neoplasm (Resolved) Carotid stenosis, bilateral (Chronic) Cervical spine degeneration (Chronic) Constipation (Acute) COPD (chronic obstructive pulmonary disease) (Chronic) Cough (Acute) Eczema (Acute) Edema (Acute) Enlarged prostate (Acute) Essential tremor (Chronic) Gastroesophageal reflux disease (Chronic) History of bladder cancer (Acute) History of pneumonia (Acute) Hyperlipidemia (Chronic) Hypertension (Chronic) Impaired vision (Acute) Kidney stones (Acute) Low back pain (Acute) Lumbar stenosis (Chronic) Osteoarthritis (Chronic) Osteoporosis (Chronic) PSA elevation (Chronic) Psoriasis (Chronic) Psoriatic arthritis (Chronic) Shortness of breath (Acute) Sinus drainage (Acute) TIA (transient ischemic attack) (Acute) Urinary frequency (Acute) Surgical History History of back surgery (Acute) History of carpal tunnel release (Inactive) History of knee surgery (Inactive) History of lumbar surgery (Inactive) History of thumb surgery (Acute) History of total knee arthroplasty (Acute) History of total right knee replacement (Inactive) Status post left rotator cuff repair (Inactive) Status post right rotator cuff repair (Inactive) Social History marital status: unmarried,single number of children: 5 household members: none lives independently: Yes caregiver/support person: No occupational status: other 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 Well-nourished, well-developed patient, in no obvious distress. GCS 15. No excessive work of breathing whatsoever HEAD: Atraumatic. Normocephalic. EYES: Pupils equal round and reactive. Extraocular motions intact. No scleral icterus. No injection or drainage. ENT: Nose without bleeding, purulent drainage. Throat without erythema, tonsillar hypertrophy or exudate, however there is fair amount of clear postnasal drainage Airway patent. NECK: Trachea midline. Non tender CARDIOVASCULAR: Regular rate and rhythm without murmurs, gallops, or rubs. RESPIRATORY: Decreased breath sounds bilaterally, no rales, rhonchi or wheeze. Good effort GASTROINTESTINAL: Abdomen soft, non-tender, nondistended. EXTREMITIES: No edema or joint tenderness. BACK: Nontender without deformity or crepitance. No flank tenderness. NEURO: AOx3. SKIN: No rash or erythema of visible areas Initial Vital Signs Initial Vital Signs: Vital Signs Temperature 97.8 F 12/01/19 15:28 Pulse Rate 58 L 12/01/19 15:28 Respiratory Rate 25 H 12/01/19 15:28 Blood Pressure 197/90 H 12/01/19 15:28 Pulse Oximetry 96 12/01/19 15:28 Course Course Course Narrative: patient continues to feel well. He has no change with orthostatics and ambulates through the ED without difficulty. Patient given return precautions and has had questions answered to his apparent satisfaction. Orders Ordered: Discontinued Medications Sodium Chloride (Normal Saline 0.9%) 1,000 mls @ 125 mls/hr IV CONT TINY Last Infusion: 12/01/19 17:36 Dose: 0 mls/hr Documented by: Admin: 12/01/19 16:04 Dose: 125 mls/hr Documented by: BAKARI Vital Signs Vital signs: Vital Signs - 8 hr 12/01/19 15:28 12/01/19 16:20 Temperature 97.8 F Pulse Rate 58 L 47 L Respiratory Rate 25 H 22 Blood Pressure 197/90 H 165/98 H Pulse Oximetry 96 98 MDM - URI/Sore Throat Lab Data Result diagrams: 12/01/19 15:35 12/01/19 15:35 Labs: Lab Results 12/01/19 12/01/19 12/01/19 Range/Units 15:35 15:35 15:35 WBC 8.1 (4.5-11.0) X10^3/uL RBC 3.52 L (4.5-5.9) X10^6/uL Hgb 11.1 L (13.5-17.5) g/dL Hct 32.3 L (41-53) % MCV 91.7 (80-100) fL MCH 31.5 (26-34) PG MCHC 34.3 (30-36) % RDW 14.6 (11.6-14.8) % Plt Count 195 (150-400) X10^3/uL Neut % (Auto) 70.0 (50-75) % Lymph % (Auto) 14.2 L (25-40) % [place]ison % (Auto) 12.3 (3-14) % Eos % (Auto) 2.9 (2-4) % Baso % (Auto) 0.6 (0-2) % Neut # (Auto) 5700 (0989-4608) /uL Lymph # (Auto) 1200 (7579-5758) /uL [place]ison # (Auto) 1000 H (0-900) /uL Eos # (Auto) 200 (0-450) /uL Baso # (Auto) 0 (0-100) /uL D-Dimer 273 H (<230) ng/mL Sodium (137-145) mmol/L Potassium (3.4-5.1) mmol/L Chloride (98-107) mmol/L Carbon Dioxide (22-32) mmol/L BUN (9-20) mg/dL Creatinine (0.66-1.25) mg/dL Estimated GFR (>60) mL/min BUN/Creatinine Ratio (6-22) Glucose (80-110) mg/dL Lactate (0.7-2.1) mmol/L Calcium (8.4-10.2) mg/dL Ferritin (18-464) ng/mL Total Bilirubin (0.2-1.3) mg/dL AST (17-59) IU/L ALT (<50) IU/L Alkaline Phosphatase (38-126) U/L Lactate Dehydrogenase (313-618) U/L Total Creatine Kinase (55-170) U/L CK-MB (CK-2) (<2.37) ng/mL CK-MB (CK-2) Rel Index (1.5-5.0) % Troponin I (0.01-0.034) ng/mL C-Reactive Protein (<1.0) mg/dL NT-Pro-B Natriuret Pep (<450) pg/mL Total Protein (6.3-8.2) g/dL Albumin (3.5-5.0) g/dL Globulin (1.7-4.1) g/dL Albumin/Globulin Ratio (1.0-2.8) Procalcitonin < 0.05 (<0.5) ng/mL COVID-19 PCR (Negative) 12/01/19 12/01/19 12/01/19 Range/Units 15:35 15:35 15:40 WBC (4.5-11.0) X10^3/uL RBC (4.5-5.9) X10^6/uL Hgb (13.5-17.5) g/dL Hct (41-53) % MCV (80-100) fL MCH (26-34) PG MCHC (30-36) % RDW (11.6-14.8) % Plt Count (150-400) X10^3/uL Neut % (Auto) (50-75) % Lymph % (Auto) (25-40) % [place]ison % (Auto) (3-14) % Eos % (Auto) (2-4) % Baso % (Auto) (0-2) % Neut # (Auto) (5322-9795) /uL Lymph # (Auto) (9830-4045) /uL Addison # (Auto) (0-900) /uL Eos # (Auto) (0-450) /uL Baso # (Auto) (0-100) /uL D-Dimer (<230) ng/mL Sodium 127 L (137-145) mmol/L Potassium 4.7 (3.4-5.1) mmol/L Chloride 95 L (98-107) mmol/L Carbon Dioxide 29 (22-32) mmol/L BUN 30 H (9-20) mg/dL Creatinine 1.19 (0.66-1.25) mg/dL Estimated GFR 58.4 L (>60) mL/min BUN/Creatinine Ratio 25.2 H (6-22) Glucose 105 (80-110) mg/dL Lactate 0.9 (0.7-2.1) mmol/L Calcium 9.1 (8.4-10.2) mg/dL Ferritin 156 (18-464) ng/mL Total Bilirubin 0.9 (0.2-1.3) mg/dL AST 34 (17-59) IU/L ALT 22 (<50) IU/L Alkaline Phosphatase 48 (38-126) U/L Lactate Dehydrogenase 644 H (313-618) U/L Total Creatine Kinase 257 H (55-170) U/L CK-MB (CK-2) 1.91 (<2.37) ng/mL CK-MB (CK-2) Rel Index 0.7 L (1.5-5.0) % Troponin I 0.012 (0.01-0.034) ng/mL C-Reactive Protein < 0.5 (<1.0) mg/dL NT-Pro-B Natriuret Pep 497 H (<450) pg/mL Total Protein 6.4 (6.3-8.2) g/dL Albumin 3.9 (3.5-5.0) g/dL Globulin 2.5 (1.7-4.1) g/dL Albumin/Globulin Ratio 1.6 (1.0-2.8) Procalcitonin (<0.5) ng/mL COVID-19 PCR Negative (Negative) Urine Dip Bedside Urine Glucose Negative Bedside Urine Bilirubin - Negative Bedside Urine Ketone - Negative Urine Specific [place] 1.015 Bedside Urine Occult Blood - Negative Bedside Urine pH 6.0 Bedside Urine Protein - Negative Bedside Urine Urobilinogen - Negative Bedside Urine Nitrite - Negative Bedside Urine Leukocytes - Negative Esterase Imaging Data Chest x-ray: Radiologist's Impression: [address] [id number] XRay Report Signed Patient: Hardeep Rosado FMR#: [id number] : 7Acct:[id number] Age/Sex: 84 / MDate of Service: 12/01/19 Loc: ED Accession Number: [id number] Procedure: XR chest 1V Ordering Provider: Elias Bangura D.O. PROCEDURE: XR CHEST 1V INDICATIONS: flu-like symptoms TECHNIQUE: One view of the chest was acquired. COMPARISON: None. FINDINGS: Surgical changes and devices: None. Lungs and pleura: Lungs are clear. No pleural effusions or pneumothorax. Mediastinum: Mediastinal contours appear normal. Heart size is normal. Bones and chest wall: No suspicious bony lesions. Overlying soft tissues appear unremarkable. IMPRESSION: No acute cardiopulmonary process demonstrated radiographically. Dictated by: Brennen Harrington M.D. on 12/01/2019 at 15:56 Approved by: Brennen Harrington M.D. on 12/01/2019 at 15:57 MDM Narrative Medical decision making narrative: Multiple etiologies for patient's symptoms considered including: [COVID 19, pneumonia, allergic rhinitis, UTI vs. other] Patient's symptoms improved over duration of stay with above-stated therapies. Findings and discharge diagnosis discussed with patient/family followed by verbalization of understanding Return precautions discussed with patient/family whom verbalize understanding. Discharge Plan Departure Patient Disposition: Home Clinical Impression: Acute hyponatremia Headache Qualifiers: Headache type: unspecified Headache chronicity pattern: acute headache Intractability: not intractable Qualified Code(s): R51 - Headache Discharge Date/Time: 12/01/19 17:59 Instructions: DI for Hyponatremia, DI for Headache Activity Restrictions/Additional Instructions: *You have been diagnosed with [ Headache, postnasal drip, low sodium ] *What to do: *Take medications as directed *Follow up with your primary care provider in 2-3 days, call for an appointment. Let them know you were seen in the Emergency Department and that we ask that you be seen in follow up *Return to ER if you should have any new, worsening or concerning symptoms Prescriptions: No Action alendronate 70 MG tablet 70 mg PO QWEEK Qty: 0 RF: 0 prednisone 1 MG tablet 2 mg PO QAM Qty: 0 RF: 0 tamsulosin [Flomax] 0.4 mg capsule 0.8 mg PO QPM Qty: 0 RF: 0 losartan 50 mg tablet 100 mg PO QDAY Qty: 0 RF: 0 tofacitinib [Xeljanz] 10 mg tablet 10 mg PO ONCE RF: 0 tofacitinib [Xeljanz XR] 11 mg Tablet Extended Release 24 Hr 11 mg PO DAILY RF: 0 Fish Oil 1,400 mg PO DAILY RF: 0 cephalexin [Keflex] 500 mg capsule 500 mg PO TID Qty: 15 RF: 0 acetaminophen [Tylenol Extra Strength] 500 mg tablet 1,000 mg PO Q6H PRNRF: 0 cbd oil topical RF: 0 cbd tinture sublingual RF: 0 Advair HFA 115-21 mcg/actuation HFA aerosol inhaler INHALATION RF: 0 vitamin d with calcium 600 mg PO .qday RF: 0 Referrals: Macrina Vivar PA-C [Primary Care Provider] -
[2019-12-01 15:47] LABS: Add Manual Diff / Slide Review NO; Basophils Absolute Auto 0 /uL (0-100); Basophils Percent Auto 0.6 % (0-2); Eosinophils Absolute Auto 200 /uL (0-450); Eosinophils Percent Auto 2.9 % (2-4); Hematocrit 32.3 % (41-53); Hemoglobin 11.1 g/dL (13.5-17.5); Lymphocytes Absolute Auto 1200 /uL (1100-4500); Lymphocytes Percent Auto 14.2 % (25-40); Mean Corpuscular HGB Conc 34.3 % (30-36); Mean Corpuscular Hemoglobin 31.5 PG (26-34); Mean Corpuscular Volume 91.7 fL (80-100); Monocytes Absolute Auto 1000 /uL (0-900); Monocytes Percent Auto 12.3 % (3-14); Neutrophils Absolute Auto 5700 /uL (1500-7000); Platelet Count 195 X10^3/uL (150-400); Red Blood Cell Count 3.52 X10^6/uL (4.5-5.9); Red Cell Distribution Width 14.6 % (11.6-14.8); White Blood Cell Count 8.1 X10^3/uL (4.5-11.0)
[2019-12-01 15:56] LABS: D Dimer 273 ng/mL (<230)
[2019-12-01 15:57] LABS: Lactate (Lactic Acid) 0.9 mmol/L (0.7-2.1)
[2019-12-01 16:01] LABS: Alanine Aminotransferase 22 IU/L (<50); Albumin 3.9 g/dL (3.5-5.0); Albumin Globulin Ratio 1.6 (1.0-2.8); Alkaline Phosphatase 48 U/L (38-126); Aspartate Aminotransferase 34 IU/L (17-59); BUN Creatinine Ratio 25.2 (6-22); Bilirubin Total 0.9 mg/dL (0.2-1.3); Blood Urea Nitrogen 30 mg/dL (9-20); Calcium 9.1 mg/dL (8.4-10.2); Carbon Dioxide 29 mmol/L (22-32); Chloride 95 mmol/L (98-107); Creatine Kinase 257 U/L (55-170); Estimated Glomerular Filt Rate 58.4 mL/min (>60); Globulin 2.5 g/dL (1.7-4.1); Glucose 105 mg/dL (80-110); HEMOLYSIS < 15 (0-50); Lactate Dehydrogenase 644 U/L (313-618); Potassium 4.7 mmol/L (3.4-5.1); Sodium 127 mmol/L (137-145); Total Protein 6.4 g/dL (6.3-8.2)
[2019-12-01] MEDS: SODIUM CHLORIDE 0.9% 1,000 ML 125 ML IV (16:04)
[2019-12-01 16:10] LABS: NT-proBNP (BNP-Adult 18+) 497 pg/mL (<450); Troponin I 0.012 ng/mL (0.01-0.034)
[2019-12-01 16:13] LABS: Procalcitonin < 0.05 ng/mL (<0.5)
[2019-12-01 16:14] LABS: C-Reactive Protein Quant < 0.5 mg/dL (<1.0)
[2019-12-01 16:33] LABS: COVID19 -Nasal RAPID Negative (Negative)
[2019-12-01 16:33] LABS: Ferritin 156 ng/mL (18-464)
[2019-12-01 17:36] LABS: CKMB % Relative Index 0.7 % (1.5-5.0); Creatine Kinase MB 1.91 ng/mL (<2.37)
== END 2019-12-01 17:59 | disposition home or self-care (01) ==
PROVIDERS: Emergency Provider Emergency Medicine; PCP Student in an Organized Health Care Education/Training Program
DX: E87.1 Hypo-osmolality and hyponatremia (principal); R05 Cough; R51 Headache
CPT/HCPCS: 71045; 80053; 81003; 82550; 82553; 82728; 83605; 83615; 83880; 84145; 84484; 85025; 85379; 86140; 87635; 93005; 93010; 96365; 96366; 99284

== ENCOUNTER 2020-04-25 17:36 | Emergency (ER) | payer MEDICARE, SELFPAY ==
[2020-04-25 17:43] VITALS: BP 164/69; PULSE 68; RESP 18; TEMP 36.6; O2SAT 98; BMI 24.0
--- NOTE | 2020-04-25 17:48 | PC.NURSE ---
Patient noticed 3-4 days ago some redness to scalp on left hand side. Had intermittent headaches which is abnormal for him. Patient notes he received COVID Vaccine on 3rd. Patient reports pain in left eye. Sent from PCP office.
--- NOTE | 2020-04-25 18:11 | ED_ITS ---
HPI - Skin/Abscess/Foreign Bdy General Chief complaint: Skin/Abscess/Foreign Body Stated complaint: states shingles Time Seen by Provider: 04/25/20 17:57 Source: patient Mode of arrival: Ambulatory Limitations: no limitations History of Present Illness HPI narrative: 84-year-old gentleman with a history of psoriatic arthritis currently on 2 mg of prednisone daily, osteoporosis, hypertension hyperlipidemia presents with rash over the left upper portion of his scalp. He 1st noted symptoms 48 hours ago with some pain and itching in his eyebrow in yesterday noticed a rash starting in today began to notice blistering. He states that he has had a zoster vaccine. He describes no fevers, chills myalgias or general malaise. The rash itself is not particularly bothersome at this time. He has no other complaints or concerns. Related Data Home Medications Medication Instructions Recorded Confirmed alendronate 70 mg PO QWEEK #0 tab 12/18/15 09/12/19 prednisone 2 mg PO QAM #0 12/18/15 09/12/19 tofacitinib 10 mg tablet 10 mg PO ONCE tab 11/25/17 09/12/19 tofacitinib [Xeljanz XR] 11 mg PO DAILY 11/30/17 09/12/19 tamsulosin 0.4 mg capsule 0.8 mg PO QPM #0 cap 12/20/17 09/12/19 Fish Oil 1,400 mg PO DAILY 07/24/18 09/12/19 losartan 50 mg tablet 100 mg PO QDAY #0 tab 07/24/18 09/12/19 vitamin d with calcium 600 mg PO .qday 07/24/18 09/12/19 acetaminophen 500 mg tablet 1,000 mg PO Q6H PRN 08/16/18 09/12/19 cbd oil TOPICAL 11/15/18 09/12/19 cbd tinture SUBLINGUAL 11/15/18 09/12/19 fluticasone propionate 115 INHALATION 09/12/19 09/12/19 mcg-salmeterol 21 mcg/actuation HFA inhaler Previous Rx's Medication Instructions Recorded cephalexin [Keflex] 500 mg PO TID #15 cap 09/15/19 valacyclovir 1,000 mg PO TID #21 tab 04/25/20 Allergies Allergy/AdvReac Type Severity Reaction Status Date / Time azithromycin [AZITHROMYCIN] AdvReac Severe GI UPSET, Verified 04/25/20 17:43 DIARRHEA levofloxacin [LEVOFLOXACIN] AdvReac Severe LT Verified 04/25/20 17:43 ACHILLES TENDINITIS/Weakness meloxicam [MELOXICAM] AdvReac Intermediate RECTAL Verified 04/25/20 17:43 BLEEDING, GI UPSET doxycycline AdvReac Unknown GI upset, Verified 04/25/20 17:43 diarrhea Review of Systems Review of Systems ROS Unobtainable: All systems reviewed & are unremarkable except as noted in HPI and below Patient History Medical History (Updated 04/25/20 @ 18:25 by Rona Garcia MD) Anemia Arthritis Fan's esophagus Basal cell carcinoma Benign prostatic hyperplasia Bladder neoplasm Carotid stenosis, bilateral Cervical spine degeneration Constipation COPD (chronic obstructive pulmonary disease) Cough Eczema Edema Enlarged prostate Essential tremor Gastroesophageal reflux disease History of bladder cancer History of pneumonia Hyperlipidemia Hypertension Impaired vision Kidney stones Low back pain Lumbar stenosis Osteoarthritis Osteoporosis PSA elevation Psoriasis Psoriatic arthritis Shortness of breath Sinus drainage TIA (transient ischemic attack) Urinary frequency Surgical History History of back surgery History of carpal tunnel release History of knee surgery History of lumbar surgery History of thumb surgery History of total knee arthroplasty History of total right knee replacement Status post left rotator cuff repair Status post right rotator cuff repair Social History marital status: unmarried,single number of children: 5 household members: none lives independently: Yes caregiver/support person: No occupational status: other 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 No lesions down the nose or involving the eye itself Neck: No anterior posterior cervical adenopathy Neurologic: Grossly intact no obvious asymmetries or abnormalities Psych: appropriate insight and affect, cooperative Initial Vital Signs Initial Vital Signs: Vital Signs Temperature 98 F 04/25/20 17:43 Pulse Rate 68 04/25/20 17:43 Respiratory Rate 18 04/25/20 17:43 Blood Pressure 164/69 H 04/25/20 17:43 Pulse Oximetry 98 04/25/20 17:43 Course Vital Signs Vital signs: Vital Signs - 8 hr 04/25/20 17:43 04/25/20 18:15 Temperature 98 F Pulse Rate 68 66 Respiratory Rate 18 12 Blood Pressure 164/69 H 176/84 H Pulse Oximetry 98 98 MDM - Skin/Abscess/Foreign Bdy Medical Records Attestation: I reviewed the patient's medical records. MDM Narrative Medical decision making narrative: 84-year-old gentleman with classic presentation of zoster in the V1 distribution not involving the eye in any way. Will place him on valacyclovir 1 g 3 times a day for 7 days. He has some Eucerin cream available to him at home, suggested he use this once the lesions begin crusting over to keep them moist as they are healing. He has a procedure scheduled for the middle of next week and is supposed to have the COVID study done tomorrow. I suggested that he contact that provider and see if they still want to proceed with that procedure in light of this new zoster diagnosis. Discharge Plan Departure Patient Disposition: Home Clinical Impression: Herpes zoster Qualifiers: Herpes zoster complications: without complications Qualified Code(s): B02.9 - Zoster without complications Instructions: DI for Shingles Activity Restrictions/Additional Instructions: Thank you for coming in today You have shingles/zoster. I have electronically transmitted a prescription for valacyclovir to [facility]. You do need to pick this up this evening and begin this medication as soon as possible. It will be 3 times a day for 7 days. Once the lesions begin crusting over, keeping the skin moisturized will help so that the crusting is quite so painful. If you develop increasing redness or purulence drainage from any of the lesions, please feel free to return to the emergency room for further evaluation to make sure you are not developing a secondary bacterial infection. Prescriptions: New valacyclovir 1 gram tablet 1,000 mg PO TID Qty: 21 RF: 0 No Action alendronate 70 MG tablet 70 mg PO QWEEK Qty: 0 RF: 0 prednisone 1 MG tablet 2 mg PO QAM Qty: 0 RF: 0 tamsulosin [Flomax] 0.4 mg capsule 0.8 mg PO QPM Qty: 0 RF: 0 losartan 50 mg tablet 100 mg PO QDAY Qty: 0 RF: 0 tofacitinib [Xeljanz] 10 mg tablet 10 mg PO ONCE RF: 0 tofacitinib [Xeljanz XR] 11 mg Tablet Extended Release 24 Hr 11 mg PO DAILY RF: 0 Fish Oil 1,400 mg PO DAILY RF: 0 cephalexin [Keflex] 500 mg capsule 500 mg PO TID Qty: 15 RF: 0 acetaminophen [Tylenol Extra Strength] 500 mg tablet 1,000 mg PO Q6H PRNRF: 0 cbd oil topical RF: 0 cbd tinture sublingual RF: 0 Advair HFA 115-21 mcg/actuation HFA aerosol inhaler INHALATION RF: 0 vitamin d with calcium 600 mg PO .qday RF: 0 Referrals: Macrina Vivar PA-C [Primary Care Provider] -
[2020-04-25 18:15] VITALS: BP 176/84; PULSE 66; RESP 12; O2SAT 98
== END 2020-04-25 18:38 | disposition home or self-care (01) ==
PROVIDERS: Emergency Provider Emergency Medicine; PCP Student in an Organized Health Care Education/Training Program
DX: B02.9 Zoster without complications (principal); E78.5 Hyperlipidemia, unspecified; I10 Essential (primary) hypertension
CPT/HCPCS: 99281

== ENCOUNTER 2020-04-27 10:27 | Emergency (ER) | payer MEDICARE, SELFPAY ==
[2020-04-27 10:52] VITALS: BP 203/84; PULSE 75; RESP 16; TEMP 37.6; O2SAT 97; BMI 24.0
--- NOTE | 2020-04-27 10:58 | ED.SKABFB ---
HPI - Skin/Abscess/Foreign Bdy General Chief complaint: Skin/Abscess/Foreign Body Stated complaint: SHINGLES SPREADING, CLOSING LEFT EYE Time Seen by Provider: 04/27/20 10:36 Source: patient Mode of arrival: Ambulatory Limitations: no limitations History of Present Illness HPI narrative: 84M former smoker with history of HTN, psoriasis presents with ongoing symptoms consistent with his recent diagnosis of shingles on his forehead. He 1st developed some pain and itching on his left upper eyelid on Tuesday and was seen by his primary care provider on Tuesday afternoon. He was sent here for evaluation of possible zoster ophthalmicus but had no findings consistent with that diagnosis. He was placed on valacyclovir 1 g 3 times daily which he has been taking as directed. He presents because he has some increased swelling of his left upper eyelid but no pain, no blurred vision, no eye pain, no increased tearing. He has no fever or chills. He denies any chest pain or shortness of breath. He denies nausea, vomiting or diarrhea. He denies any difficulty swallowing or change in appetite. He denies any pain in his nose or left ear. He does have an upcoming appointment with his folder seamer automatic for follow-up MD complaint: rash Onset (ago): day(s) Tetanus up to date: yes Location: face Severity: mild Quality: dull Pain Consistency: constant Relieving factors: none Exacerbating factors: none Context: none Associated symptoms: denies other symptoms Treatments prior to arrival: other (Antiviral) Related Data Home Medications Medication Instructions Recorded Confirmed alendronate 70 mg PO QWEEK #0 tab 12/18/15 09/12/19 prednisone 2 mg PO QAM #0 12/18/15 09/12/19 tofacitinib 10 mg tablet 10 mg PO ONCE tab 11/25/17 09/12/19 tofacitinib [Xeljanz XR] 11 mg PO DAILY 11/30/17 09/12/19 tamsulosin 0.4 mg capsule 0.8 mg PO QPM #0 cap 12/20/17 09/12/19 Fish Oil 1,400 mg PO DAILY 07/24/18 09/12/19 losartan 50 mg tablet 100 mg PO QDAY #0 tab 07/24/18 09/12/19 vitamin d with calcium 600 mg PO .qday 07/24/18 09/12/19 acetaminophen 500 mg tablet 1,000 mg PO Q6H PRN 08/16/18 09/12/19 cbd oil TOPICAL 11/15/18 09/12/19 cbd tinture SUBLINGUAL 11/15/18 09/12/19 fluticasone propionate 115 INHALATION 09/12/19 09/12/19 mcg-salmeterol 21 mcg/actuation HFA inhaler Previous Rx's Medication Instructions Recorded cephalexin [Keflex] 500 mg PO TID #15 cap 09/15/19 valacyclovir 1,000 mg PO TID #21 tab 04/25/20 Allergies Allergy/AdvReac Type Severity Reaction Status Date / Time azithromycin [AZITHROMYCIN] AdvReac Severe GI UPSET, Verified 04/25/20 17:43 DIARRHEA levofloxacin [LEVOFLOXACIN] AdvReac Severe LT Verified 04/25/20 17:43 ACHILLES TENDINITIS/Weakness meloxicam [MELOXICAM] AdvReac Intermediate RECTAL Verified 04/25/20 17:43 BLEEDING, GI UPSET doxycycline AdvReac Unknown GI upset, Verified 04/25/20 17:43 diarrhea Review of Systems Constitutional Constitutional: Denies chills, Denies fatigue, Denies fever(s), Denies frequent falls, Denies lethargy and Denies weakness Eyes Eyes: Denies change in vision, Denies eye discharge, Denies irritation and Denies loss of vision ENT Ears, Nose, Mouth, and Throat: Denies change in voice, Denies dizziness, Denies neck pain, Denies sore throat and Denies throat swelling Cardiovascular Cardiovascular: Denies chest pain, Denies irregular heart rhythm, Denies lightheadedness, Denies palpitations, Denies dyspnea, Denies dyspnea on exertion and Denies orthopnea Respiratory Respiratory: Denies cough, Denies dyspnea, Denies dyspnea on exertion and Denies wheezing Gastrointestinal Gastrointestinal: Denies abdominal pain, Denies change in bowel habits, Denies diarrhea, Denies nausea and Denies vomiting Musculoskeletal Musculoskeletal: Denies neck pain and Denies numbness Integumentary/Breasts Skin/Breast: Denies pruritus, Denies erythema, Reports rash and Denies wounds Neurologic Neurologic: Denies behavioral changes, Denies confusion, Denies dizziness, Denies frequent falls, Denies loss of vision, Denies numbness and Denies weakness Psychiatric Psychiatric: Denies anxiety, Denies behavioral changes, Denies confusion, Denies depression, Denies homicidal ideation and Denies suicidal ideation Endocrine Endocrine: Denies fatigue, Denies flushing and Denies palpitations Hematologic/Lymphatic Hematologic/Lymphatic: Denies easy bruising Allergic/Immunologic Allergic/Immunologic: Denies urticaria, Denies throat swelling and Denies wheezing Patient History Medical History Anemia Arthritis Fan's esophagus Basal cell carcinoma Benign prostatic hyperplasia Bladder neoplasm Carotid stenosis, bilateral Cervical spine degeneration Constipation COPD (chronic obstructive pulmonary disease) Cough Eczema Edema Enlarged prostate Essential tremor Gastroesophageal reflux disease History of bladder cancer History of pneumonia Hyperlipidemia Hypertension Impaired vision Kidney stones Low back pain Lumbar stenosis Osteoarthritis Osteoporosis PSA elevation Psoriasis Psoriatic arthritis Shortness of breath Sinus drainage TIA (transient ischemic attack) Urinary frequency Surgical History History of back surgery History of carpal tunnel release History of knee surgery History of lumbar surgery History of thumb surgery History of total knee arthroplasty History of total right knee replacement Status post left rotator cuff repair Status post right rotator cuff repair Social History marital status: unmarried,single number of children: 5 household members: none lives independently: Yes caregiver/support person: No occupational status: other 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 Extraoccular muscles are intact bilaterally. There is no subconjunctival hemorrhage or exudate. Proparacaine and fluorescein placed in left eye and no dye uptake noted, no dendritic lesions or findings to suggest zoster ophthalmicus ENT: No pain or blisters in nose. No blisters in L ear. TMs clear CHEST: Lungs are clear to auscultation bilaterally and free of wheezes, rales, or rhonchi. Heart rate is regular rhythm, there are no murmurs, clicks, rubs, or gallops. There is no chest wall tenderness. ABD: Abdomen is soft and nontender. There is no guarding or rebound. Bowel sounds are normal in all 4 quadrants. There is no mass or organomegaly. EXT: Full painless ROM of all extremities with no loss of sensation or strength. SKIN: Left side scalp with clear fluid filled and crusting blisters on an erythematous base in much of the distribution of V1. Upper lid swelling, minimal pain. Initial Vital Signs Initial Vital Signs: Vital Signs Temperature 99.6 F 04/27/20 10:52 Pulse Rate 75 04/27/20 10:52 Respiratory Rate 16 04/27/20 10:52 Blood Pressure 203/84 H 04/27/20 10:52 Pulse Oximetry 97 04/27/20 10:52 Course Orders Ordered: Discontinued Medications Fluorescein Sodium (Fluorescein 1 Mg Strip) 1 mg EYE-LEFT NOW ONE Stop: 04/27/20 11:11 Last Admin: 04/27/20 11:15 Dose: 1 mg Documented by: MAYDA Proparacaine HCl (Proparacaine 0.5% Ophth Jessica) 1 drops EYE-LEFT NOW ONE Stop: 04/27/20 11:11 Last Admin: 04/27/20 11:15 Dose: 1 drop Documented by: MAYDA Vital Signs Vital signs: Vital Signs - 8 hr 04/27/20 10:52 Temperature 99.6 F Pulse Rate 75 Respiratory Rate 16 Blood Pressure 203/84 H Pulse Oximetry 97 MDM - Skin/Abscess/Foreign Bdy MDM Narrative Medical decision making narrative: Patient presents with expected seqeulae of shingles. He has no findings consistent with zoster ophthalmicus or disseminated zoster. Patient given reassurance. Discussed return precautions and need for follow up (already in place). Questions answered to his apparent satisfaction. Discharge Plan Departure Patient Disposition: Home Clinical Impression: Herpes zoster Qualifiers: Herpes zoster complications: without complications Qualified Code(s): B02.9 - Zoster without complications Instructions: DI for Shingles Activity Restrictions/Additional Instructions: *You have been diagnosed with [herpes zoster on left side of forehead, no evidence of ocular involvement] *What to do: *Take medications as directed *Follow up with your primary care provider in 2-3 days, call for an appointment. Let them know you were seen in the Emergency Department and that we ask that you be seen in follow up *Return to ER if you should have any new, worsening or concerning symptoms, such as [trouble swallowing, trouble breathing, eye pain, blurring of vision or other bothersome symptoms] Prescriptions: No Action alendronate 70 MG tablet 70 mg PO QWEEK Qty: 0 RF: 0 prednisone 1 MG tablet 2 mg PO QAM Qty: 0 RF: 0 tamsulosin [Flomax] 0.4 mg capsule 0.8 mg PO QPM Qty: 0 RF: 0 losartan 50 mg tablet 100 mg PO QDAY Qty: 0 RF: 0 tofacitinib [Xeljanz] 10 mg tablet 10 mg PO ONCE RF: 0 valacyclovir 1 gram tablet 1,000 mg PO TID Qty: 21 RF: 0 tofacitinib [Xeljanz XR] 11 mg Tablet Extended Release 24 Hr 11 mg PO DAILY RF: 0 Fish Oil 1,400 mg PO DAILY RF: 0 cephalexin [Keflex] 500 mg capsule 500 mg PO TID Qty: 15 RF: 0 acetaminophen [Tylenol Extra Strength] 500 mg tablet 1,000 mg PO Q6H PRNRF: 0 cbd oil topical RF: 0 cbd tinture sublingual RF: 0 Advair HFA 115-21 mcg/actuation HFA aerosol inhaler INHALATION RF: 0 vitamin d with calcium 600 mg PO .qday RF: 0 Referrals: Macrina Vivar PA-C [Primary Care Provider] -
--- NOTE | 2020-04-27 11:09 | PC.NURSE ---
patient has recent Dx of shingles. raised lesions and redness on the top of left forehead. Patient concerned for shingles going into his eye. he states if felt swollen and difficult to open. denies visual changes.
[2020-04-27] MEDS: PROPARACAINE 0.5% OPHTH SOL 1 DROPS EYE-LEFT (11:15)
[2020-04-27] MEDS: FLUORESCEIN 1 MG STRIP EYE-LEFT (11:15)
== END 2020-04-27 11:38 | disposition home or self-care (01) ==
PROVIDERS: Emergency Provider Emergency Medicine; PCP Student in an Organized Health Care Education/Training Program
DX: B02.9 Zoster without complications (principal); I10 Essential (primary) hypertension
CPT/HCPCS: 99281; 99282

== ENCOUNTER → 2020-07-14 18:58 | Outpatient (ROUT) | payer MEDICARE, SELFPAY ==
[2020-07-14 19:39] LABS: BUN Creatinine Ratio 26.3 (6-22); Blood Urea Nitrogen 31 mg/dL (9-20); Calcium 9.8 mg/dL (8.4-10.2); Carbon Dioxide 29 mmol/L (22-32); Chloride 100 mmol/L (98-107); Estimated Glomerular Filt Rate 58.8 mL/min (>60); Glucose 81 mg/dL (80-110); HEMOLYSIS < 15 (0-50); Potassium 4.4 mmol/L (3.4-5.1); Sodium 133 mmol/L (137-145)
[2020-07-14 20:10] LABS: Sodium Urine Random 84 mmol/L (30-90)
[2020-07-14 21:06] LABS: Cortisol AM (Before 10AM) 10.9 ug/dL (4.46-22.7)
[2020-07-16 10:48] LABS: Osmolality Urine 507 mOsmol/kg (.)
== END ==
PROVIDERS: PCP Student in an Organized Health Care Education/Training Program; Visit Provider Student in an Organized Health Care Education/Training Program
DX: E87.1 Hypo-osmolality and hyponatremia (principal)
CPT/HCPCS: 80048; 82533; 83935; 84300

== ENCOUNTER 2020-11-18 20:12 | Observation (INO) | payer MEDICARE, SELFPAY ==
[2020-11-18] VITALS (12 sets, daily range): BP systolic 160–213; BP diastolic 72–102; PULSE 45–55; RESP 11–21; TEMP 36.8; O2SAT 95–98; BMI 25.6
--- NOTE | 2020-11-18 20:19 | DI.CT.S_ITS ---
PROCEDURE: CT STROKE INDICATIONS: facial droop TECHNIQUE: Noncontrast 4.5 mm thick angled axial sections acquired from the foramen magnum to the vertex, with coronal reformats. For radiation dose reduction, the following was used: automated exposure control, adjustment of mA and/or kV according to patient size. COMPARISON: [facility], CT, CT ANGIO HEAD AND NECK, 11/18/2020, 20:23. FINDINGS: Image quality: Excellent. CSF spaces: Basal cisterns are patent. No extra-axial fluid collections. Ventricles are normal in size and shape. Brain: No midline shift. No intracranial masses or hemorrhage. No area of hypodensity in a large vascular distribution to suggest acute infarction. Periventricular hypodensity consistent with chronic microvascular ischemic change. Age-related parenchymal loss. Skull and face: Calvarium and visualized facial bones are intact, without suspicious lesions. Sinuses: Visualized sinuses and mastoids are clear. IMPRESSION: No acute intracranial abnormality. Chronic microvascular ischemic disease. Comment: Findings were discussed with Brigette Anthony at the time of dictation. This study fulfills neurological imaging criteria for inclusion or exclusion of acute stroke therapies based on available published neurological imaging guidelines. Dictated by: Satnam Urban M.D. on 11/18/2020 at 20:55 Approved by: Satnam Urban M.D. on 11/18/2020 at 20:58
--- NOTE | 2020-11-18 20:19 | DI.CT.S_ITS ---
PROCEDURE: CT ANGIO HEAD AND NECK INDICATIONS: facial droop TECHNIQUE: After the administration of intravenous contrast, 1 mm thick sections acquired from the aortic arch through the [place]. Post-contrast 4.5 mm thick sections then re-acquired from the foramen magnum to the vertex. 3-dimensional [id number] (MIP) and/or volume rendering reformats were acquired of the central intracranial vasculature and neck separately. COMPARISON: [facility], CT, CT STROKE, 11/18/2020, 20:23. FINDINGS: Image quality: Excellent. BRAIN: CSF spaces: Ventricles are normal in size and shape. Basal cisterns are patent. No extra-axial fluid collections. Brain: No midline shift. No intracranial bleeds or masses. [place]-white matter interface appears intact. Skull and face: Calvarium and facial bones appear intact, without suspicious lesions. Orbits appear normal. Sinuses: Right maxillary sinus mucosal thickening. Mastoids are clear. HEAD CT ANGIOGRAPHY: Anterior circulation: Intracranial internal carotid arteries are normal in size and flow. The flow within the paired anterior cerebral arteries is normal and symmetric. The flow within the middle cerebral arteries is normal and symmetric. The anterior communicating artery is seen. No aneurysms are seen. Posterior circulation: Visualized portions of the vertebral arteries demonstrate normal caliber, and join to form a normal appearing basilar artery. Flow within the posterior cerebral arteries is normal and symmetric. No aneurysms are seen. NECK CT ANGIOGRAPHY: Carotid system: [place]ovine origin of the left common carotid artery. The origins of the common carotid arteries appear patent. The common carotid arteries demonstrate normal caliber and courses. Extensive plaque. The bifurcation regions are both widely patent. The internal carotid arteries demonstrate normal calibers and courses. There is extensive plaque at the carotid bulbs. There is approximately 50 % stenosis at the origin of the right and left ICA. Posterior circulation: The origins of the vertebral arteries both appear widely patent. The more superior extracranial portions of both vertebral arteries also demonstrate normal courses and calibers. They join to form a normal appearing basilar artery. Soft tissues: Visualized neck soft tissues demonstrate no suspicious abnormalities. Subpleural reticular thickening at the upper lobes. Bones: No suspicious bony lesions. Visualized cervical spine appears normally aligned. IMPRESSION: 1. No large vessel occlusion. 2. Extensive calcified plaque in the common carotid arteries and the carotid bulbs. Approximately 50 % stenosis is estimated in the ICA. 3. Right maxillary sinus mucosal thickening. 4. Pulmonary fibrosis. Any quantitative measurements of stenosis were performed using NASCET criteria. Dictated by: Satnam Urban M.D. on 11/18/2020 at 20:59 Approved by: Satnam Urban M.D. on 11/18/2020 at 21:08
[2020-11-18 20:25] LABS: Add Manual Diff / Slide Review NO; Basophils Absolute Auto 100 /uL (0-100); Basophils Percent Auto 1.1 % (0-2); Eosinophils Absolute Auto 300 /uL (0-450); Eosinophils Percent Auto 3.8 % (2-4); Hematocrit 33.8 % (41-53); Hemoglobin 11.4 g/dL (13.5-17.5); Lymphocytes Absolute Auto 1300 /uL (1100-4500); Lymphocytes Percent Auto 18.3 % (25-40); Mean Corpuscular HGB Conc 33.7 % (30-36); Mean Corpuscular Hemoglobin 31.8 PG (26-34); Mean Corpuscular Volume 94.5 fL (80-100); Monocytes Absolute Auto 900 /uL (0-900); Monocytes Percent Auto 12.6 % (3-14); Neutrophils Absolute Auto 4500 /uL (1500-7000); Neutrophils Percent Auto 64.2 % (50-75); Platelet Count 215 X10^3/uL (150-400); Red Blood Cell Count 3.58 X10^6/uL (4.5-5.9); Red Cell Distribution Width 14.7 % (11.6-14.8); White Blood Cell Count 7.1 X10^3/uL (4.5-11.0)
[2020-11-18 20:33] LABS: BUN Creatinine Ratio 37.4 (6-22); Blood Urea Nitrogen 40 mg/dL (9-20); Calcium 9.5 mg/dL (8.4-10.2); Carbon Dioxide 28 mmol/L (22-32); Chloride 101 mmol/L (98-107); Creatine Kinase 229 U/L (55-170); Estimated Glomerular Filt Rate > 60.0 mL/min (>60); Glucose 98 mg/dL (80-110); Potassium 5.1 mmol/L (3.4-5.1); Sodium 133 mmol/L (137-145)
--- NOTE | 2020-11-18 20:42 | ED.NEUROSD ---
HPI - Neuro Symptoms/Deficit General Chief Complaint: Neuro Symptoms/Deficit Stated Complaint: Neuro symptoms Time Seen by Provider: 11/18/20 20:18 Source: patient and EMS Mode of arrival: EMS Limitations: no limitations History of Present Illness HPI Narrative: This is an 85-year-old female comes with complaint of neuro symptoms. Between 6:00 p.m. and 730pm patient appreciated that he had some change in the vision of his left eye he did not feel like he close it and he noted that he had some droop of his left side of his face as well as some dysarthria. Patient contacted his daughter around 7:30 p.m. and she also appreciated the changes to his speech. Patient vision changes have resolved he feels like he can close his eye fully. He feels like his speech has also return to normal and that facial movement is improving. Patient denies headache. He denies any current vision changes. No chest pain, no shortness of breath. No nausea vomiting or tingling. Patient has not had similar episodes in past. He does note he occasionally bites the left tongue and inner lips frequently for the past several months. He does have a history of psoriatic arthritis, anemia, Fan's esophagitis, COPD and history of prior bladder cancer as well as hypertension in the lipidemia and herpes zoster. Patient was hypertensive here in the department but he has had all his regular blood pressure medications today. He denies any recent surgeries. Former smoker, occasional alcohol, no illicit. On Anticoagulants: No Related Data Home Medications Medication Instructions Recorded Confirmed alendronate 70 mg tablet 70 mg PO QWEEK #0 tab 12/18/15 11/19/20 prednisone 1 mg tablet 2 mg PO QAM #0 12/18/15 11/19/20 tofacitinib 11 mg tablet,extended 11 mg PO DAILY 11/30/17 11/19/20 release 24 hr (Xeljanz XR) tamsulosin 0.4 mg capsule (Flomax) 0.8 mg PO QPM #0 cap 12/20/17 11/19/20 Fish Oil 1,400 mg PO DAILY 07/24/18 11/19/20 losartan 50 mg tablet 100 mg PO QDAY #0 tab 07/24/18 11/19/20 vitamin d with calcium 600 mg PO DAILY 07/24/18 11/19/20 cbd tinture 1 pump SUBLINGUAL DAILY 11/15/18 11/19/20 fluticasone propionate 115 2 puff INHALATION BID 09/12/19 11/19/20 mcg-salmeterol 21 mcg/actuation HFA inhaler Allergies Allergy/AdvReac Type Severity Reaction Status Date / Time azithromycin [AZITHROMYCIN] AdvReac Severe GI UPSET, Verified 11/18/20 20:18 DIARRHEA levofloxacin [LEVOFLOXACIN] AdvReac Severe LT Verified 11/18/20 20:18 ACHILLES TENDINITIS/Weakness meloxicam [MELOXICAM] AdvReac Intermediate RECTAL Verified 11/18/20 20:18 BLEEDING, GI UPSET doxycycline AdvReac Unknown GI upset, Verified 11/18/20 20:18 diarrhea Review of Systems Review of Systems ROS Unobtainable: All systems reviewed & are unremarkable except as noted in HPI and below Hematologic/Lymphatic On Anticoagulants: No Patient History Medical History Anemia Arthritis Fan's esophagus Basal cell carcinoma Benign prostatic hyperplasia Bladder neoplasm Carotid stenosis, bilateral Cervical spine degeneration Constipation COPD (chronic obstructive pulmonary disease) Cough Eczema Edema Enlarged prostate Essential tremor Gastroesophageal reflux disease History of bladder cancer History of pneumonia Hyperlipidemia Hypertension Impaired vision Kidney stones Low back pain Lumbar stenosis Osteoarthritis Osteoporosis PSA elevation Psoriasis Psoriatic arthritis Shortness of breath Sinus drainage TIA (transient ischemic attack) Urinary frequency Surgical History History of back surgery History of carpal tunnel release History of knee surgery History of lumbar surgery History of thumb surgery History of total knee arthroplasty History of total right knee replacement Status post left rotator cuff repair Status post right rotator cuff repair Family History Mother Heart disease Father Heart disease Social History marital status: unmarried,single number of children: 5 household members: none lives independently: Yes caregiver/support person: No occupational status: other Previous occupational 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 HEENT: Atraumatic, pupils are equal round reactive to light, extraocular movements are intact, patient does not have any decreased motion of the left forehead, he has equal strength, he has no facial droop with mild but does not mild change on today's labial fold at times, has normal movement with smile nares are clear, TMs are clear with no fluid, there is no conjunctival pallor. Throat is clear without any exudates, erythema, tonsillar enlargement or uvular deviation HEART: Regular rate and rhythm without murmur, clicks, rubs. No carotid bruits, pulses are equal in upper and lower extremities LUNGS:Lungs clear to auscultation, no wheezes, rales, crackles, chest moves symmetrically ABD:bowel sounds normal, soft, non-tender, no guarding, rebound, rigidity, no masses noted, no hepatosplenomegaly :No CVA tenderness MSCL: Non-tender, no muscle atrophy, muscles strength 5/5 upper and lower extremities, full range of motion, normal gait NEURO:CN 2-12 intact, sensation normal, reflexes 2/4 upper and lower extremities. finger nose finger test normal, heel moy test normal, romberg normal SKIN: No rash, erythema or other skin changes noted. Initial Vital Signs Initial Vital Signs: Vital Signs Pulse Rate 55 L 11/18/20 20:13 Respiratory Rate 18 11/18/20 20:13 Blood Pressure 213/80 H 11/18/20 20:13 Pulse Oximetry 96 11/18/20 20:13 Scores NIH Stroke Scale Level of Conciousness: Alert, keenly responsive Ask month/age: Answers both questions correctly. Open/close eyes, close hand: Performs both tasks correctly Best gaze horizontal: Normal Visual meraz: No visual loss Facial palsy: Normal symetrical movement Left arm drift: No drift for full 10 sec Right arm drift: No drift for full 10 sec Left leg drift: No drift for full 5 sec Right leg drift: No drift for full 5 sec Limb ataxia: Absent Sensory on face/arms/legs: Normal, no sensory loss Best language: No aphasia, normal Dysarthria: Normal Extinction or inattention: No abnormality Total NIH Stroke scale score: 0 Course Orders Ordered: ED Orders 11/18/20 20:15 Basic Metabolic Panel Stat Complete Blood Count AUTO DIFF Stat Magnesium Urgent Troponin & CK Cardiac Panel Stat 11/18/20 20:[address] angio head and neck Stat EKG-12 Lead Stat 11/18/20 20:35 Partial Thromboplastin Time Stat Prothrombin Time INR Stat 11/18/20 21:55 Urinalysis and Microscopic Stat Urine Drug Screen, Rapid Stat 11/18/20 22:50 COVID19 - ADMIT ([employer] swab/PCR) Stat 11/18/20 23:36 MR stroke Stat Education, smoking cessation ONGOING 11/18/20 23:47 EC echo doppler complete Urgent 11/18/20 23:48 Consult to Occupational Therapy Evaluate & Treat Consult to Physical Therapy Evaluate & Treat Consult to Speech Therapy Evaluate & Treat 11/19/20 05:00 Comprehensive Metabolic Panel DAILY Hemoglobin and Hematocrit DAILY Lipid Panel Routine NT-proBNP (BNP-Adult 18+) Routine Acetaminophen (Acetaminophen 325 Mg Tablet) 650 mg PO Q6HR PRN PRN Reason: Fever/Mild Pain (1-3) Last Admin: 11/19/20 01:22 Dose: 650 mg Documented by: NILA Albuterol (Albuterol 2.5 Mg/3 Ml Neb (Adult)) 2.5 mg INH [id number] TINY Albuterol (Albuterol 2.5 Mg/3 Ml Neb (Adult)) 2.5 mg INH Q2H PRN PRN Reason: Shortness Of Breath Aspirin (Aspirin Ec 81 Mg Tablet) 81 mg PO DAILY TINY Atorvastatin Calcium (Atorvastatin 20 Mg Tablet) 20 mg PO BEDTIME TINY Last Admin: 11/19/20 01:06 Dose: 20 mg Documented by: NILA Budesonide (Budesonide 0.5 Mg/2 Ml Neb) 0.5 mg INH RTBID TINY Clopidogrel Bisulfate (Clopidogrel 75 Mg Tablet) 75 mg PO DAILY [facility] Sodium Chloride (Normal Saline 0.9%) 1,000 mls @ 40 mls/hr IV CONT TINY Last Infusion: 11/19/20 01:10 Dose: 40 mls/hr Documented by: Infusion: 11/19/20 00:12 Dose: 150 mls/hr Documented by: Admin: 11/18/20 20:53 Dose: 150 mls/hr Documented by: AUDI Losartan Potassium (Losartan 50 Mg Tablet) 100 mg PO DAILY TINY Naloxone HCl (Naloxone 0.4 Mg/Ml Vial) 0.2 mg IV Q2MIN PRN PRN Reason: Opiate Reversal Tofacitinib [Xeljanz Xr] 11 Mg Tablet Extended Release 24 Hr) 11 mg PO DAILY [facility] Prednisone (Prednisone 1 Mg Tablet) 2 mg PO DAILY [facility] Tamsulosin HCl (Tamsulosin 0.4 Mg Capsule) 0.8 mg PO QPM [facility] Discontinued Medications Aspirin (Aspirin 81 Mg Chew Tab) 324 mg PO NOW ONE Stop: 11/18/20 21:19 Last Admin: 11/18/20 21:37 Dose: 324 mg Documented by: AUDI Hydralazine HCl (Hydralazine 20 Mg/Ml Vial) 10 mg IV Q6HR PRN PRN Reason: Hypertension Losartan Potassium (Losartan 50 Mg Tablet) 100 mg PO DAILY [facility] Last Admin: 11/19/20 04:42 Dose: Not Given Documented by: NILA Prednisone (Prednisone 1 Mg Tablet) 2 mg PO DAILY [facility] Last Admin: 11/19/20 04:42 Dose: Not Given Documented by: NILA Consultations Consultation #1: PAT Shannon, accepts for observation for TIA. Patient was hypertensive here in the department with systolic in 200s but it improved to 170 range without intervention so no additional antihypertensives were ordered. Patient received aspirin 325 mg. Vital Signs Vital signs: Vital Signs - 8 hr 11/18/20 21:00 11/18/20 21:01 11/18/20 21:30 Temperature Pulse Rate 51 L 55 L 51 L Respiratory Rate 21 20 17 Blood Pressure 204/78 H Pulse Oximetry 97 96 95 11/18/20 21:31 11/18/20 22:00 11/18/20 22:01 Temperature Pulse Rate 50 L 48 L 48 L Respiratory Rate 16 19 Blood Pressure 176/75 H 169/72 H Pulse Oximetry 96 95 96 11/18/20 22:30 11/18/20 22:31 11/19/20 00:25 Temperature 97.3 F L Pulse Rate 49 L 45 L 91 H Respiratory Rate 15 11 L 16 Blood Pressure 160/72 H 179/59 H Pulse Oximetry 97 96 98 MDM - Neuro Symptoms/Deficit Lab Data Result diagrams: 11/18/20 20:15 11/18/20 20:15 Labs: Lab Results 11/18/20 11/18/20 11/18/20 Range/Units 20:15 20:15 20:15 WBC 7.1 (4.5-11.0) X10^3/uL RBC 3.58 L (4.5-5.9) X10^6/uL Hgb 11.4 L (13.5-17.5) g/dL Hct 33.8 L (41-53) % MCV 94.5 (80-100) fL MCH 31.8 (26-34) PG MCHC 33.7 (30-36) % RDW 14.7 (11.6-14.8) % Plt Count 215 (150-400) X10^3/uL Neut % (Auto) 64.2 (50-75) % Lymph % (Auto) 18.3 L (25-40) % [place] % (Auto) 12.6 (3-14) % Eos % (Auto) 3.8 (2-4) % Baso % (Auto) 1.1 (0-2) % Neut # (Auto) 4500 (6885-2113) /uL Lymph # (Auto) 1300 (4241-7502) /uL [place] # (Auto) 900 (0-900) /uL Eos # (Auto) 300 (0-450) /uL Baso # (Auto) 100 (0-100) /uL PT (10.1-12.7) SECONDS INR (0.9-1.3) APTT (26.4-36.2) SECONDS Sodium 133 L (137-145) mmol/L Potassium 5.1 (3.4-5.1) mmol/L Chloride 101 (98-107) mmol/L Carbon Dioxide 28 (22-32) mmol/L BUN 40 H (9-20) mg/dL Creatinine 1.07 (0.66-1.25) mg/dL Estimated GFR > 60.0 (>60) mL/min BUN/Creatinine Ratio 37.4 H (6-22) Glucose 98 (80-110) mg/dL Calcium 9.5 (8.4-10.2) mg/dL Magnesium 2.1 (1.6-2.3) mg/dL Total Creatine Kinase 229 H (55-170) U/L CK-MB (CK-2) 4.11 H (<2.37) ng/mL CK-MB (CK-2) Rel Index 1.8 (1.5-5.0) % Troponin I < 0.012 (0.01-0.034) ng/mL Urine Color Urine Appearance Urine pH (4.5-8.0) Ur Specific [place] (1.000-1.035) Urine Protein (Negative) Urine Glucose (UA) (Negative) g/dL Urine Ketones (NEGATIVE) Urine Occult Blood (Negative) Urine Nitrate (Negative) Urine Bilirubin (NEGATIVE) Urine Urobilinogen (0.2) E.U./dL Ur Leukocyte Esterase (NEGATIVE) Urine RBC (0-5/HPF) Urine WBC (0-5/HPF) Urine Bacteria (None) Ur Culture Indicated? Micro UA Comment U Opiates 300ng/mL cut (Negative) Ur Oxycodone Screen (Negative) Urine Methadone Screen (Negative) Ur Barbiturates Screen (Negative) U Tricyclic Antidepress (Negative) Ur Phencyclidine Scrn (Negative) Ur Amphetamines Screen (Negative) U Methamphetamines Scrn (Negative) Ur MDMA Scrn (Ecstasy) (Negative) U Benzodiazepines Scrn (Negative) Urine Cocaine Screen (Negative) U Marijuana (THC) Screen (Negative) SARS-CoV-2 (PCR) (Negative) 11/18/20 11/18/20 11/18/20 Range/Units 20:35 21:55 21:55 WBC (4.5-11.0) X10^3/uL RBC (4.5-5.9) X10^6/uL Hgb (13.5-17.5) g/dL Hct (41-53) % MCV (80-100) fL MCH (26-34) PG MCHC (30-36) % RDW (11.6-14.8) % Plt Count (150-400) X10^3/uL Neut % (Auto) (50-75) % Lymph % (Auto) (25-40) % [place] % (Auto) (3-14) % Eos % (Auto) (2-4) % Baso % (Auto) (0-2) % Neut # (Auto) (2704-0828) /uL Lymph # (Auto) (8384-0701) /uL [place] # (Auto) (0-900) /uL Eos # (Auto) (0-450) /uL Baso # (Auto) (0-100) /uL PT 11.6 (10.1-12.7) SECONDS INR 1.0 (0.9-1.3) APTT 33 (26.4-36.2) SECONDS Sodium (137-145) mmol/L Potassium (3.4-5.1) mmol/L Chloride (98-107) mmol/L Carbon Dioxide (22-32) mmol/L BUN (9-20) mg/dL Creatinine (0.66-1.25) mg/dL Estimated GFR (>60) mL/min BUN/Creatinine Ratio (6-22) Glucose (80-110) mg/dL Calcium (8.4-10.2) mg/dL Magnesium (1.6-2.3) mg/dL Total Creatine Kinase (55-170) U/L CK-MB (CK-2) (<2.37) ng/mL CK-MB (CK-2) Rel Index (1.5-5.0) % Troponin I (0.01-0.034) ng/mL Urine Color Yellow Urine Appearance Clear Urine pH 7.5 (4.5-8.0) Ur Specific [place] 1.010 (1.000-1.035) Urine Protein Negative (Negative) Urine Glucose (UA) Negative (Negative) g/dL Urine Ketones Negative (NEGATIVE) Urine Occult Blood Negative (Negative) Urine Nitrate Negative (Negative) Urine Bilirubin Negative (NEGATIVE) Urine Urobilinogen 0.2 (0.2) E.U./dL Ur Leukocyte Esterase Negative (NEGATIVE) Urine RBC None seen (0-5/HPF) Urine WBC None seen (0-5/HPF) Urine Bacteria None seen (None) Ur Culture Indicated? Cult not indicated Micro UA Comment Microscopic normal U Opiates 300ng/mL cut Negative (Negative) Ur Oxycodone Screen Negative (Negative) Urine Methadone Screen Negative (Negative) Ur Barbiturates Screen Negative (Negative) U Tricyclic Antidepress Negative (Negative) Ur Phencyclidine Scrn Negative (Negative) Ur Amphetamines Screen Negative (Negative) U Methamphetamines Scrn Negative (Negative) Ur MDMA Scrn (Ecstasy) Negative (Negative) U Benzodiazepines Scrn Negative (Negative) Urine Cocaine Screen Negative (Negative) U Marijuana (THC) Screen Negative (Negative) SARS-CoV-2 (PCR) (Negative) 11/18/20 Range/Units 22:50 WBC (4.5-11.0) X10^3/uL RBC (4.5-5.9) X10^6/uL Hgb (13.5-17.5) g/dL Hct (41-53) % MCV (80-100) fL MCH (26-34) PG MCHC (30-36) % RDW (11.6-14.8) % Plt Count (150-400) X10^3/uL Neut % (Auto) (50-75) % Lymph % (Auto) (25-40) % [place] % (Auto) (3-14) % Eos % (Auto) (2-4) % Baso % (Auto) (0-2) % Neut # (Auto) (0213-8685) /uL Lymph # (Auto) (4460-8031) /uL [place] # (Auto) (0-900) /uL Eos # (Auto) (0-450) /uL Baso # (Auto) (0-100) /uL PT (10.1-12.7) SECONDS INR (0.9-1.3) APTT (26.4-36.2) SECONDS Sodium (137-145) mmol/L Potassium (3.4-5.1) mmol/L Chloride (98-107) mmol/L Carbon Dioxide (22-32) mmol/L BUN (9-20) mg/dL Creatinine (0.66-1.25) mg/dL Estimated GFR (>60) mL/min BUN/Creatinine Ratio (6-22) Glucose (80-110) mg/dL Calcium (8.4-10.2) mg/dL Magnesium (1.6-2.3) mg/dL Total Creatine Kinase (55-170) U/L CK-MB (CK-2) (<2.37) ng/mL CK-MB (CK-2) Rel Index (1.5-5.0) % Troponin I (0.01-0.034) ng/mL Urine Color Urine Appearance Urine pH (4.5-8.0) Ur Specific [place] (1.000-1.035) Urine Protein (Negative) Urine Glucose (UA) (Negative) g/dL Urine Ketones (NEGATIVE) Urine Occult Blood (Negative) Urine Nitrate (Negative) Urine Bilirubin (NEGATIVE) Urine Urobilinogen (0.2) E.U./dL Ur Leukocyte Esterase (NEGATIVE) Urine RBC (0-5/HPF) Urine WBC (0-5/HPF) Urine Bacteria (None) Ur Culture Indicated? Micro UA Comment U Opiates 300ng/mL cut (Negative) Ur Oxycodone Screen (Negative) Urine Methadone Screen (Negative) Ur Barbiturates Screen (Negative) U Tricyclic Antidepress (Negative) Ur Phencyclidine Scrn (Negative) Ur Amphetamines Screen (Negative) U Methamphetamines Scrn (Negative) Ur MDMA Scrn (Ecstasy) (Negative) U Benzodiazepines Scrn (Negative) Urine Cocaine Screen (Negative) U Marijuana (THC) Screen (Negative) SARS-CoV-2 (PCR) Negative (Negative) Point of Care Testing Glucose POC 96 ECG Data Attestation: I personally reviewed and interpreted this ECG as follows: Interpretation: Sinus bradycardia rate of 50 P are 168 QRS 80 and QTC 362. No acute ST changes appreciated. MDM Narrative Medical decision making narrative: This is an 85-year-old male who comes with complaint of left visual change and facial droop as well as dysarthria that has improved prior to and during arrival in department. Initially concern for Merino's palsy patient does not have any and continues changes so this seems unlikely. Suspect stroke. Patient is hypertensive. Initial head CT negative angiography shows mild to moderate stenosis but nothing greater than 50%. Patient has chronic baseline anemia. Sodium of 133 which is similar to prior from July. BUN of 40 with otherwise normal renal function and negative troponin. COVID swab is negative. Case was discussed with PAT Shannon who accepts for observation. Patient would have been in the window for tPA but symptoms had resolved so this was not given. Discharge Plan Departure Patient Disposition: Admitted as Observation Clinical Impression: TIA (transient ischemic attack) Admit Date/Time: 11/19/20 00:26 Admit Provider: Priscila Shannon
[2020-11-18 20:45] LABS: Troponin I < 0.012 ng/mL (0.01-0.034)
[2020-11-18 20:48] LABS: CKMB % Relative Index 1.8 % (1.5-5.0); Creatine Kinase MB 4.11 ng/mL (<2.37); HEMOLYSIS 26 (0-50)
[2020-11-18 20:52] LABS: Prothrombin Time 11.6 SECONDS (10.1-12.7)
[2020-11-18] MEDS: SODIUM CHLORIDE 0.9% 1,000 ML 150 ML IV (20:53)
[2020-11-18 20:55] LABS: PTT Partial Thromboplastin Tim 33 SECONDS (26.4-36.2)
[2020-11-18] MEDS: ASPIRIN 81 MG CHEW TAB 324 MG PO (21:37)
[2020-11-18 22:00] LABS: Bacteria Urine None Seen; RBC Urine None Seen (0-5/HPF); WBC Urine None Seen (0-5/HPF)
[2020-11-18 22:01] LABS: Appearance Urine UA CLEAR; Bilirubin Urine UA NEGATIVE (NEGATIVE); Color Urine UA YELLOW; Glucose Urine UA NEGATIVE (Negative); Ketones Urine UA NEGATIVE (NEGATIVE); Leukocyte Esterase Urine UA NEGATIVE (NEGATIVE); Nitrite Urine UA NEGATIVE (Negative); Occult Blood Urine UA NEGATIVE (Negative); Protein Urine UA NEGATIVE (Negative); Urobilinogen Urine UA 0.2 E.U./dL (0.2); pH Urine UA 7.5 (4.5-8.0)
[2020-11-18 22:03] LABS: Ur Creatinine Normal (Normal); Ur Specific Gravity Normal (Normal); Urine pH Normal (Normal)
[2020-11-18 22:04] LABS: UR Morphine/Opiate cutoff 300 Negative (Negative); Urine Amphetamines Negative (Negative); Urine Barbiturates Negative (Negative); Urine Benzodiazepines Negative (Negative); Urine Cocaine Negative (Negative); Urine MDMA Negative (Negative); Urine Methadone Negative (Negative); Urine Methamphetamines Negative (Negative); Urine Oxycodone Negative (Negative); Urine Phencyclidine Negative (Negative); Urine Tetrahydrocannabinol Negative (Negative); Urine Tricyclic Antidepressant Negative (Negative)
[2020-11-18 22:08] LABS: Culture Indicated Urine Cult Not Indicated; Urine Comments Microscopic Normal
--- NOTE | 2020-11-18 23:36 | DI.MRI.S_ITS ---
PROCEDURE: MR STROKE Pre- and post-contrast brain MRI, non-contrast brain MR angiogram, pre- and postcontrast neck MR angiogram INDICATIONS: TIA vs Stroke TECHNIQUE: Brain: Noncontrast axial T1 spin echo, axial T2 fast spin echo, sagittal and axial FLAIR, coronal T2 fast spin echo, axial gradient echo, axial diffusion and ADC through the brain. After the administration of contrast, axial 3D VIBE of the cranial vasculature and brain. Brain MRA: Non-contrast 3-D time of flight MR angiogram, with multiple uwbnzkh-rmeqkrexi-klewknpuru (MIP) reformats performed. Neck MRA: Axial and sagittal TruFISP through the neck. Coronal dynamic MR angiogram during administration of contrast in the arterial and venous phases, with 3-dimenstional qbopfdw-qwvdjpchz-zlhoftrxfz (MIP) reformats constructed from subtraction images. COMPARISON: [facility], MR, MR STROKE PROTOCOL, 04/09/2015, 23:49. [facility], CT, CT STROKE, 11/18/2020, 20:23. [facility], CT, CT ANGIO HEAD AND NECK, 11/18/2020, 20:23. FINDINGS: Image quality: This examination is limited by involuntary motion artifact. BRAIN: CSF spaces: Ventricles are normal in size and shape. Basal cisterns are patent. No extra-axial fluid collections. Brain: There is minimal increased diffusion-weighted signal seen involving the posterior aspect of the right frontal lobe, as on series 20 images 68 and 69. There is associated dark signal seen on the ADC maps. No intracranial bleeds or mass effects. [place]-white matter interface is normal. Brainstem appears normal. Normal intravascular flow voids are present. No abnormal intracranial enhancement. Note is made of age-appropriate brain parenchymal volume loss and chronic small vessel ischemic changes. There is mild increased FLAIR signal seen involving the anterior superior right frontal lobe, as on series 10, image 8. No abnormal diffusion-weighted signal can be seen at this site. Skull and face: Calvarial marrow signal is normal. Orbits appear normal. Note is made of bilateral lens replacements. Sinuses: Moderate mucosal thickening is seen within the inferior maxillary sinuses. Mild mucosal thickening is seen elsewhere within the paranasal sinuses. There is mild leftward nasal septal deviation. No abnormal fluid is seen within the mastoid air cells. BRAIN MR ANGIOGRAM: Anterior circulation: Intracranial internal carotid arteries are normal in size and enhancement. Loss of signal can be seen within the cavernous carotid arteries, which is attributed to artifact. The flow within the paired anterior cerebral arteries is normal and symmetric. The flow within the middle cerebral arteries is normal and symmetric. The anterior communicating artery is seen. No stenoses, occlusions, or aneurysms. Posterior circulation: There is approximately 50% narrowing seen involving both distal V4 segments. This is progressed compared to 2016. The visualized portions of the vertebral arteries otherwise demonstrate normal caliber, and join to form a normal appearing basilar artery. The flow within the posterior cerebral arteries is normal and symmetric. No occlusions or aneurysms. NECK MR ANGIOGRAM: Carotids: Incidental note is made of a common origin of the right brachiocephalic artery and the left common carotid artery (bovine type arch). This is considered to be a developmental variant of no clinical consequence. The origins of the common carotid arteries appear patent. The calibers and courses of both common carotid arteries are normal. The bifurcation regions demonstrate atherosclerotic irregularity, with approximately 30% narrowing on the right and approximately 40% narrowing on the left. The more distal internal carotid arteries demonstrate normal course and caliber. Posterior circulation: There is approximately 50% narrowing seen involving the origins of both vertebral arteries. The more distal extracranial vertebral arteries demonstrate normal caliber. The vertebral arteries demonstrate moderate tortuosity. Miscellaneous: Subclavian arteries appear patent. Pre-contrast images through the neck show no soft tissue abnormalities. 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 Additional area of abnormal FLAIR signal seen involving the right frontal lobe, most likely related to a late subacute or remote infarction. BRAIN MR ANGIOGRAM: No significant intracranial arterial abnormality is seen. Approximately 50% narrowing can be seen involving each distal V4 segment. NECK MR ANGIOGRAM: There is approximately 50% narrowing seen involving the origins the vertebral arteries. Mild narrowings can be seen involving the proximal internal carotid arteries. Bovine type aortic branching pattern incidentally noted. Dictated by: Wilber Proctor M.D. on 11/19/2020 at 10:28 Approved by: Wilber Proctor M.D. on 11/19/2020 at 10:36
--- NOTE | 2020-11-18 23:47 | DI.ECHO.S_ITS ---
[facility] +[facility]+ : : [address] : : : : [id number] : : : : Phone: [phone]+ Echocardiogram Report + + :Name: JULIANA SORENSEN Study Date: 11/19/2020 Height: 62 in : :[facility] ReadingLocation: Weight: 140 lb : : Gender: Male BSA: 1.6 m2 : :: 1935 Age: 85 yrs BP: 179/59 mmHg: :Reason For Study: HYPERTENSION, TIA VS STROKE : :Ordering Physician: JUAN, : :MILLI Performed By: Lyssa Orona : :Referring: MILLI MARTINEZ : + + Interpretation Summary 1) Normal left ventricular thickness, size, wall motion, and systolic function (EF 60-65%). 2) Normal right ventricular size and function. 3) Diastolic parameters suggest a pseudonormalization pattern, consistent with probable elevated filling pressures. 4) The left atrium is severely dilated. The right atrium is moderately dilated. 5) There is mild to moderate tricuspid regurgitation. 6) The right ventricular systolic pressure is estimated to be t least 46 mmHg based on an estimated right atrial pressure of 3 mm Hg. 7) Severe hypertension present during the study (BP 179/59mmHg). 8) Compared to the Echo done 12/28/2017, tricuspid regurgitation has increased from mild to mild-moderate on this study. Procedure: A two-dimensional transthoracic echocardiogram with color flow and Doppler was performed. The study quality was technically adequate. There is no prior echocardiogram noted for this patient. The patient was in sinus bradycardia with heart rates between 46-51 bpm during the exam. The patient had occasional PVCs during the exam. Left Ventricle: The left ventricle is normal in size and wall thickness. The ejection fraction is estimated to be 60-65%. Left ventricular wall motion is normal. Diastolic parameters suggest a pseudonormalization pattern, consistent with probable elevated filling pressures. Right Ventricle: The right ventricle is normal in size and function. Atria: The left atrium is severely dilated. The right atrium is moderately dilated. There is no Doppler evidence for an interatrial shunt. Mitral Valve: There is moderate to severe mitral annular calcification. The mitral valve chordae are thickened and/or calcified. The mitral valve leaflets appear borderline thickened, but open well. There is mild mitral regurgitation. Aortic Valve: The aortic valve is trileaflet. The aortic valve opens well. The aortic valve is slightly calcified. There is no aortic valve stenosis. There is mild aortic regurgitation. Tricuspid Valve: The tricuspid valve is normal in structure and function. The right ventricular systolic pressure is estimated to be at least 46 mmHg based on an estimated right atrial pressure of 3 mm Hg. There is mild to moderate tricuspid regurgitation. Pulmonic Valve: The pulmonic valve leaflets are thin and pliable; valve motion is normal. There is mild pulmonic regurgitation. Great Vessels: The aortic root is normal size. The dimensions of the ascending aorta are normal. The IVC is dilated (diameter is greater than 2.1 cm) yet it collapses greater than 50% with a sniff. This suggests a right atrial pressure of 8 mm Hg. Pericardium/ Pleura There is no pericardial effusion. There is no pleural effusion. MMode/2D Measurements & Calculations LVIDd: 5.2 cm Ao root diam: 2.0 cm LVIDs: 3.2 cm asc Aorta Diam: 3.2 cm FS: 37.9 % IVSd: 0.82 cm LVPWd: 0.84 cm LV rapp. diameter/BSA (cm/m^2): 3.2 LV sys. diameter/BSA (cm/m^2): 2.0 LA A2 area: 25.0 cm2 RA long axis: 5.8 cm LA A4 area: 23.4 cm2 RA area: 22.5 cm2 LA length (vol): 6.0 cm RA vol: 74.4 ml LA vol: 82.9 ml RA : 45.3 ml/m2 LA vol index: 50.5 ml/m2 IVC diam: 2.1 cm RVD1 (basal): 4.0 cm TAPSE: 2.2 cm Doppler Measurements & Calculations Ao V2 max: 154.8 cm/sec LVOT Max Paco: 101.7 cm/sec Ao V2 mean: 108.1 cm/sec LV V1 max P.1 mmHg Ao max P.6 mmHg LV V1 VTI: 25.9 cm Ao mean P.1 mmHg sev ratio: 0.61 Ao V2 VTI: 42.4 cm MV E max paco: 93.7 cm/sec TR max paco: 328.7 cm/sec MV A max paco: 115.7 cm/sec TR max P.2 mmHg MV E/A: 0.81 PA V2 max: 93.0 cm/sec Med Peak E' Paco: 7.4 cm/sec PA V2 mean: 57.4 cm/sec E/E' med: 12.6 PA mean P.6 mmHg Lat Peak E' Paco: 6.3 cm/sec PA pr(Accel): 17.3 mmHg E/E' lat: 14.8 E/e' average: 13.7 MV dec time: 0.27 sec Reading Physician:09:09 AM
[2020-11-18 23:51] LABS: COVID19 - ADMIT (NP swab/PCR) Negative (Negative)
[2020-11-19] VITALS (7 sets, daily range): BP systolic 149–179; BP diastolic 59–66; PULSE 43–91; RESP 16; TEMP 36.3–36.4; O2SAT 95–98; BMI 26.4
[2020-11-19 00:14] LABS: Magnesium 2.1 mg/dL (1.6-2.3)
[2020-11-19] MEDS: ATORVASTATIN 20 MG TABLET PO (01:06)
[2020-11-19] MEDS: ACETAMINOPHEN 325 MG TABLET 650 MG PO ×2 (01:22→08:11)
--- NOTE | 2020-11-19 02:41 | PC.ADMIT ---
Patient admitted to room 209 from ER per stretcher but ambulated into room and was steady on feet. Reports he was having difficulty with left eye and facial droop earlier which brought him into the ER. Currently has an NIH of 1 due to left facial droop. Is alert and oriented. Breath sounds CTA with RA sat of 98%. HRR with telemetry reading of SB and a rate of 46. BP elevated at 179/59 and [employer]IE[employer]CHITECT is aware. Denied nausea. BT present and abdomen is soft. Using urinal to void and denies dysuria, frequency or urgency. Initially denied pain but after being in bathroom and wiping himself he started having stabbing pain in back and was medicated with Tylenol and is now asleep. Able to turn himself in bed. Out of bed with SBA. Bilateral calf SCD's applied. Fall risk score is low but bed alarm is activated as [employer]IE[employer] ENTERPRISE ARCHITECT order for fall precautions. Oriented to bed controls and call light. [address] [facility] Admission Note: The patient,Hardeep Rosado,85 y/o, was given written information regarding hospital policies, unit procedures and contact persons. Patient's smoking status: Former smoker. Vital Signs - 8 hr 11/18/20 20:13 11/18/20 20:18 11/18/20 20:30 Temperature 98.3 F Pulse Rate 55 L 55 L 53 L Respiratory Rate 18 12 17 Blood Pressure 213/80 H 213/80 H Pulse Oximetry 96 98 98 11/18/20 20:36 11/18/20 21:00 11/18/20 21:01 Temperature Pulse Rate 54 L 51 L 55 L Respiratory Rate 18 21 20 Blood Pressure 162/102 H 204/78 H Pulse Oximetry 97 97 96 11/18/20 21:30 11/18/20 21:31 11/18/20 22:00 Temperature Pulse Rate 51 L 50 L 48 L Respiratory Rate 17 16 Blood Pressure 176/75 H Pulse Oximetry 95 96 95 11/18/20 22:01 11/18/20 22:30 11/18/20 22:31 Temperature Pulse Rate 48 L 49 L 45 L Respiratory Rate 19 15 11 L Blood Pressure 169/72 H 160/72 H Pulse Oximetry 96 97 96 11/19/20 00:25 Temperature 97.3 F L Pulse Rate 91 H Respiratory Rate 16 Blood Pressure 179/59 H Pulse Oximetry 98
--- NOTE | 2020-11-19 03:45 | PM.HP.1 ---
History of Present Illness History of Present Illness Date Patient Seen: 11/18/20 Time Patient Seen: 23:53 Chief complaint: Neuro symptoms Narrative: Patient is a 85-year-old male Hardeep Rosado with a medical history of anemia, Fan's esophagus, BPH, bilateral carotid stenosis, COPD, GERD, history of bladder cancer, hyperlipidemia, hypertension, herpes zoster, and psoriatic arthritis who presented to the ED this evening with complaints of a 20 minute episode of vision changes-left eye, left-sided facial droop, abnormal speech, and difficulty closing the left eye. This episode was witnessed by the patient's daughter at approximately 6-7 p.m., most symptoms resolved before presenting to the ED. ED provider noted minor facial droop upon admit but was quickly resolved and patient had an initial NIH score of 0 in the ED. patient presented with SBP in the 200s to 160s. Upon admit to the floor patient denies any neurological symptoms, headache, changes in vision, weakness, numbness, tingling, chest pain, shortness of breath, abdominal pain, nausea, vomiting, bowel or bladder incontinence or difficulties, balance or coordination issues, extremity swelling, difficulty swallowing, changes in speech, recent illness injury or trauma. Patient's vital upon signs upon admit noted mild hypertension BP 160/72, HR 45, R 11, O2 saturation 96% on room air. Patient's noted chronic anemia HGB 11.4, HCT 33.8, chronic hyponatremia Na 133, BUN 40, total creatinine kinase 229, CK-MB 4.11, troponin, UA, and toxicology WNL. I personally reviewed patient's EKG demonstrated sinus bradycardia with a ventricular rate of [address] or T-wave changes which is unchanged when compared to EKG from 11/14/2019. Head/Neck CTA demonstrated extensive calcified plaque in the common carotid arteries and the carotid bulbs, approximately 50 % stenosis is estimated in the ICA, with pulmonary fibrosis. Head CT demonstrated no acute intracranial abnormality but was positive or chronic microvascular ischemic disease. Patient admitted for observation neurological deficit TIA versus stroke rule out with hypertensive urgency. Patient History Medical History Anemia Arthritis Fan's esophagus Basal cell carcinoma Benign prostatic hyperplasia Bladder neoplasm Carotid stenosis, bilateral Cervical spine degeneration Constipation COPD (chronic obstructive pulmonary disease) Cough Eczema Edema Enlarged prostate Essential tremor Gastroesophageal reflux disease History of bladder cancer History of pneumonia Hyperlipidemia Hypertension Impaired vision Kidney stones Low back pain Lumbar stenosis Osteoarthritis Osteoporosis PSA elevation Psoriasis Psoriatic arthritis Shortness of breath Sinus drainage TIA (transient ischemic attack) Urinary frequency Surgical History History of back surgery History of carpal tunnel release History of knee surgery History of lumbar surgery History of thumb surgery History of total knee arthroplasty History of total right knee replacement Status post left rotator cuff repair Status post right rotator cuff repair Family & Social History Family History Mother Heart disease Father Heart disease Social History: household members none Prior Living Arrangements Apartment/Condo lives independently Yes caregiver/support person No Safety & Behavioral: Feels Safe in Current Yes Environment Been Physically Hurt or No Threatened By a Person Suicidal Ideation Description None Suicide Plan Description No Plan Tobacco & Substance use: Tobacco type cigarettes Smoking Status Former smoker alcohol intake current alcohol intake frequency a few times a week Substance Use Type does not use Meds Home Medications and Allergies Home Medications Medication Instructions Recorded Confirmed Type alendronate 70 mg tablet 70 mg PO QWEEK #0 tab 12/18/15 11/19/20 History prednisone 1 mg tablet 2 mg PO QAM #0 12/18/15 11/19/20 History tofacitinib 11 mg tablet,extended 11 mg PO DAILY 11/30/17 11/19/20 History release 24 hr (Xeljanz XR) tamsulosin 0.4 mg capsule (Flomax) 0.8 mg PO QPM #0 cap 12/20/17 11/19/20 History Fish Oil 1,400 mg PO DAILY 07/24/18 11/19/20 History losartan 50 mg tablet 100 mg PO QDAY #0 tab 07/24/18 11/19/20 History vitamin d with calcium 600 mg PO DAILY 07/24/18 11/19/20 History cbd tinture 1 pump SUBLINGUAL DAILY 11/15/18 11/19/20 History fluticasone propionate 115 2 puff INHALATION BID 09/12/19 11/19/20 History mcg-salmeterol 21 mcg/actuation HFA inhaler Allergies Allergy/AdvReac Type Severity Reaction Status Date / Time azithromycin [AZITHROMYCIN] AdvReac Severe GI UPSET, Verified 11/18/20 20:18 DIARRHEA levofloxacin [LEVOFLOXACIN] AdvReac Severe LT Verified 11/18/20 20:18 ACHILLES TENDINITIS/Weakness meloxicam [MELOXICAM] AdvReac Intermediate RECTAL Verified 11/18/20 20:18 BLEEDING, GI UPSET doxycycline AdvReac Unknown GI upset, Verified 11/18/20 20:18 diarrhea Review of Systems Review of Systems Narrative: All 12 point systems reviewed with the patient and are negative except otherwise documented. Exam Vital Signs (past 8 hours): - 11/18/20 20:13 11/18/20 20:18 11/18/20 20:30 Temperature 98.3 F Pulse Rate 55 L 55 L 53 L Respiratory Rate 18 12 17 Blood Pressure 213/80 H 213/80 H Pulse Oximetry 96 98 98 11/18/20 20:36 11/18/20 21:00 11/18/20 21:01 Temperature Pulse Rate 54 L 51 L 55 L Respiratory Rate 18 21 20 Blood Pressure 162/102 H 204/78 H Pulse Oximetry 97 97 96 11/18/20 21:30 11/18/20 21:31 11/18/20 22:00 Temperature Pulse Rate 51 L 50 L 48 L Respiratory Rate 17 16 Blood Pressure 176/75 H Pulse Oximetry 95 96 95 11/18/20 22:01 11/18/20 22:30 11/18/20 22:31 Temperature Pulse Rate 48 L 49 L 45 L Respiratory Rate 19 15 11 L Blood Pressure 169/72 H 160/72 H Pulse Oximetry 96 97 96 11/19/20 00:25 11/19/20 03:38 Temperature 97.3 F L 97.3 F L Pulse Rate 91 H 43 L Respiratory Rate 16 16 Blood Pressure 179/59 H 149/66 H Pulse Oximetry 98 95 Oxygen Delivery Method Room Air Oxygen Flow Rate 0 Narrative Exam Narrative: General: Patient is a well-developed, well-nourished, spry 85-year-old male, no distress at this time. HEENT: Normocephalic, atraumatic, extraocular muscles intact, oral pharynx is clear and mucous membranes are moist. Neck is supple and symmetric, trachea is midline, no adenopathy, no thyroid enlargement, nontender, no masses palpated. Negative for JVD Chest: Normal AP diameter and contour without kyphoscoliosis, no nasal flaring, retractions, or tachypneic labored Lungs: Auscultation of all lung meraz are clear without adventitious sounds, wheezes, rhonchi, or rales. Cardio: S1 & S2 with bradycardic rate and regular rhythm without murmur, rubs, or gallops. Abdomen: Soft nontender, negative for organomegaly, or masses. Bowel sounds are present in all 4 quadrants without guarding or rebound, no CVA tenderness. Musculoskeletal: Muscle strength and tone are equal within normal limits, no deformity, crepitus, effusions, cyanosis, clubbing or edema present. Full range of motion intact radial and pedal pulses are normal. Skin: Warm dry and intact without rashes, ulcerations or petechiae. Neuro: Alert and orientated x3, strength is +5/5 in all extremities, sensation to touch intact, no gross deficits noted of cranial nerves. Psych: Patient has a well-kept appearance, appropriate affect, mental status attitude thought context and judgment are appropriate for age. Objective Labs Result Diagrams: 11/18/20 20:15 11/18/20 20:15 Labs: Laboratory Results - last 24 hr 11/18/20 11/18/20 11/18/20 20:15 20:15 20:15 WBC 7.1 RBC 3.58 L Hgb 11.4 L Hct 33.8 L MCV 94.5 MCH 31.8 MCHC 33.7 RDW 14.7 Plt Count 215 Neut % (Auto) 64.2 Lymph % (Auto) 18.3 L [place] % (Auto) 12.6 Eos % (Auto) 3.8 Baso % (Auto) 1.1 Neut # (Auto) 4500 Lymph # (Auto) 1300 [place] # (Auto) 900 Eos # (Auto) 300 Baso # (Auto) 100 PT INR APTT Sodium 133 L Potassium 5.1 Chloride 101 Carbon Dioxide 28 BUN 40 H Creatinine 1.07 Estimated GFR > 60.0 BUN/Creatinine Ratio 37.4 H Glucose 98 Calcium 9.5 Magnesium 2.1 Total Creatine Kinase 229 H CK-MB (CK-2) 4.11 H CK-MB (CK-2) Rel Index 1.8 Troponin I < 0.012 Urine Color Urine Appearance Urine pH Ur Specific [place] Urine Protein Urine Glucose (UA) Urine Ketones Urine Occult Blood Urine Nitrate Urine Bilirubin Urine Urobilinogen Ur Leukocyte Esterase Urine RBC Urine WBC Urine Bacteria Ur Culture Indicated? Micro UA Comment U Opiates 300ng/mL cut Ur Oxycodone Screen Urine Methadone Screen Ur Barbiturates Screen U Tricyclic Antidepress Ur Phencyclidine Scrn Ur Amphetamines Screen U Methamphetamines Scrn Ur MDMA Scrn (Ecstasy) U Benzodiazepines Scrn Urine Cocaine Screen U Marijuana (THC) Screen SARS-CoV-2 (PCR) 11/18/20 11/18/20 11/18/20 20:35 21:55 21:55 WBC RBC Hgb Hct MCV MCH MCHC RDW Plt Count Neut % (Auto) Lymph % (Auto) [place] % (Auto) Eos % (Auto) Baso % (Auto) Neut # (Auto) Lymph # (Auto) [place] # (Auto) Eos # (Auto) Baso # (Auto) PT 11.6 INR 1.0 APTT 33 Sodium Potassium Chloride Carbon Dioxide BUN Creatinine Estimated GFR BUN/Creatinine Ratio Glucose Calcium Magnesium Total Creatine Kinase CK-MB (CK-2) CK-MB (CK-2) Rel Index Troponin I Urine Color Yellow Urine Appearance Clear Urine pH 7.5 Ur Specific [place] 1.010 Urine Protein Negative Urine Glucose (UA) Negative Urine Ketones Negative Urine Occult Blood Negative Urine Nitrate Negative Urine Bilirubin Negative Urine Urobilinogen 0.2 Ur Leukocyte Esterase Negative Urine RBC None seen Urine WBC None seen Urine Bacteria None seen Ur Culture Indicated? Cult not indicated Micro UA Comment Microscopic normal U Opiates 300ng/mL cut Negative Ur Oxycodone Screen Negative Urine Methadone Screen Negative Ur Barbiturates Screen Negative U Tricyclic Antidepress Negative Ur Phencyclidine Scrn Negative Ur Amphetamines Screen Negative U Methamphetamines Scrn Negative Ur MDMA Scrn (Ecstasy) Negative U Benzodiazepines Scrn Negative Urine Cocaine Screen Negative U Marijuana (THC) Screen Negative SARS-CoV-2 (PCR) 11/18/20 22:50 WBC RBC Hgb Hct MCV MCH MCHC RDW Plt Count Neut % (Auto) Lymph % (Auto) [place] % (Auto) Eos % (Auto) Baso % (Auto) Neut # (Auto) Lymph # (Auto) [place] # (Auto) Eos # (Auto) Baso # (Auto) PT INR APTT Sodium Potassium Chloride Carbon Dioxide BUN Creatinine Estimated GFR BUN/Creatinine Ratio Glucose Calcium Magnesium Total Creatine Kinase CK-MB (CK-2) CK-MB (CK-2) Rel Index Troponin I Urine Color Urine Appearance Urine pH Ur Specific [place] Urine Protein Urine Glucose (UA) Urine Ketones Urine Occult Blood Urine Nitrate Urine Bilirubin Urine Urobilinogen Ur Leukocyte Esterase Urine RBC Urine WBC Urine Bacteria Ur Culture Indicated? Micro UA Comment U Opiates 300ng/mL cut Ur Oxycodone Screen Urine Methadone Screen Ur Barbiturates Screen U Tricyclic Antidepress Ur Phencyclidine Scrn Ur Amphetamines Screen U Methamphetamines Scrn Ur MDMA Scrn (Ecstasy) U Benzodiazepines Scrn Urine Cocaine Screen U Marijuana (THC) Screen SARS-CoV-2 (PCR) Negative Assessment & Plan Assessment & Plan narrative: Patient is a 85-year-old male Hardeep Rosado with a medical history of anemia, Fan's esophagus, BPH, bilateral carotid stenosis, COPD, GERD, history of bladder cancer, hyperlipidemia, hypertension, herpes zoster, and psoriatic arthritis who presented to the ED this evening with complaints of a 20 minute episode of vision changes left, left-sided facial droop, abnormal speech, and difficulty closing the left eye with Hypertensive urgency. Patient's symptoms had resolved prior to ED arrival. Patient admitted for observation neurological deficit TIA versus stroke rule out. 1. Neurological deficit (vision changes-left, left-sided facial droop, altered speech), TIA versus stroke, acute, in the setting of essential hypertension, urgency acute exacerbation on chronic, with chronic bradycardia, present on admission -suspect TIA over stroke as patient's ED and admit NIH: 0 -initial SBP in 200's-160, BP 160/72, HR 45, R 11, O2 saturation 96% on room air. -I personally reviewed patient's EKG demonstrated sinus bradycardia with a ventricular rate of [address] or T-wave changes which is unchanged when compared to EKG from 11/14/2019. -Head/Neck CTA demonstrated extensive calcified plaque in the common carotid arteries and the carotid bulbs, approximately 50 % stenosis is estimated in the ICA, with pulmonary fibrosis. Head CT demonstrated no acute intracranial abnormality but was positive or chronic microvascular ischemic disease -differential diagnosis TIA, Stroke, ischemic stroke, intracranial hemorrhage, subdural hematoma, epidural hematoma, seizure, brain tumor, migraine, vertigo, hypoglycemia, Carine [place] syndrome, multiple sclerosis, aortic dissection. -Admit telemed, Vital signs q.4 hours, neuro checks/NIH Qshift while awake or PRN, notify provider for temp greater than 38 C, , heart rate >100 -treat systolic blood pressure>220 or diastolic blood pressure> 120 -activity as tolerated, strict fall precautions. -supplemental O2 to maintain> 94%. -Diet NPO until swallow evaluation is done, then heart healthy if cleared -fluids:NS40cc/Hr -Medications: Aspirin 81 mg q.day within 48 hours, Plavix 75 mg daily.Lipitor 20mg -labs: H&H, CMP, TSH, troponins, hemoglobin A1c, ESR/CRP, Lipid panel -MR and echo ordered for tomorrow -PT/OT/ST evaluations -continue patient's losartan 2. Anemia, Chronic, present on admission -initial HGB 11.4, HCT 33.8 (baseline HGB 11.1-12.2/HCT 33.1-35.2) -monitor H&H- no signs of acute bleeding 3. Acute on chronic hyponatremia, present on admission - initial Na 133 (baseline 135-127) -NS at 40cc/Hr 4. COPD, chronic, present on admission -continue patient's Advair 5. Psoriatic arthritis, chronic, present on admission -continue patient's Tofacitinib, prednisone 6. Osteoporosis/osteopenia, chronic, present on admission -continue patient's Fosamax 7. BPH, chronic, present on admission -continue patient's tamsulosin Code status: Full code Surrogate decision maker: Daughter Nova Chavarria COVID PCR: Negative COVID vaccination: Moderna May 2020 DVT/VTE prophylaxis: Plavix 75 mg and SCDs Disposition: Patient admitted for observation and further imaging and diagnostic stroke and TIA risk stratification, expected length of stay less than 2 midnights. I have utilized all available immediate resources to obtain, update, or review the patient's current medications. I confirmed that the patient's advanced care plan is present, Code status is documented and/or surrogate decision maker is listed in the patient's medical record. Time Spent With Patient Critical Care time: I spent a total of [] minutes of critical care time on this patient's care today; this time is exclusive of procedural time. Quality VTE Deep Vein Thrombosis/Pulmonary Embolism Present on Admission: No
[2020-11-19 07:20] LABS: Hematocrit 29.5 % (41-53)
[2020-11-19 07:34] LABS: Alanine Aminotransferase 20 IU/L (<50); Albumin 3.3 g/dL (3.5-5.0); Albumin Globulin Ratio 1.5 (1.0-2.8); Alkaline Phosphatase 33 U/L (38-126); Aspartate Aminotransferase 31 IU/L (17-59); Bilirubin Total 0.8 mg/dL (0.2-1.3); Blood Urea Nitrogen 31 mg/dL (9-20); Calcium 8.5 mg/dL (8.4-10.2); Carbon Dioxide 27 mmol/L (22-32); Chloride 105 mmol/L (98-107); Cholesterol 160 mg/dL (140-199); Estimated Glomerular Filt Rate > 60.0 mL/min (>60); Globulin 2.2 g/dL (1.7-4.1); Glucose 79 mg/dL (80-110); HDL Cholesterol 95 mg/dL (40-60); HEMOLYSIS < 15 (0-50); LDL Cholesterol Calculated 59 mg/dL (<100); Potassium 4.2 mmol/L (3.4-5.1); Sodium 133 mmol/L (137-145); Total Protein 5.5 g/dL (6.3-8.2); Triglycerides 31 mg/dL (35-150)
[2020-11-19 07:43] LABS: NT-proBNP (BNP-Adult 18+) 412 pg/mL (<450)
[2020-11-19] MEDS: ASPIRIN EC 81 MG TABLET PO (08:12)
[2020-11-19] MEDS: CLOPIDOGREL 75 MG TABLET PO (08:12)
[2020-11-19] MEDS: LOSARTAN 50 MG TABLET 100 MG PO (08:14)
[2020-11-19] MEDS: predniSONE 1 MG TABLET 2 MG PO (08:18)
[2020-11-19 08:24] LABS: TSH w/ Reflex to FT4 2.74 uIU/mL (0.47-4.68)
[2020-11-19] MEDS: ALBUTEROL 2.5 MG/3 ML NEB (ADULT) INH (08:37)
[2020-11-19] MEDS: BUDESONIDE 0.5 MG/2 ML NEB INH (08:37)
[2020-11-19 08:40] LABS: Hemoglobin A1C% w Est Avg Glu 5.4 % (4.0-6.0)
--- NOTE | 2020-11-19 08:59 | PM.DS.1 ---
History of Present Illness History of Present Illness Chief complaint: Neuro symptoms Narrative: Per Priscila Shannon: Patient is a 85-year-old male Hardeep Rosado with a medical history of anemia, Fan's esophagus, BPH, bilateral carotid stenosis, COPD, GERD, history of bladder cancer, hyperlipidemia, hypertension, herpes zoster, and psoriatic arthritis who presented to the ED this evening with complaints of a 20 minute episode of vision changes-left eye, left-sided facial droop, abnormal speech, and difficulty closing the left eye.? This episode was witnessed by the patient's daughter at approximately 6-7 p.m., most symptoms resolved before presenting to the ED. ED provider noted minor facial droop upon admit but was quickly resolved and patient had an initial NIH score of 0 in the ED. patient presented with SBP in the 200s to 160s.? Upon admit to the floor patient denies any neurological symptoms, headache, changes in vision, weakness, numbness, tingling, chest pain, shortness of breath, abdominal pain, nausea, vomiting, bowel or bladder incontinence or difficulties, balance or coordination issues, extremity swelling, difficulty swallowing, changes in speech, recent illness injury or trauma. Patient's vital upon signs upon admit noted mild hypertension BP 160/72, HR 45, R 11, O2 saturation 96% on room air.? Patient's noted chronic anemia HGB 11.4, HCT 33.8, chronic hyponatremia Na 133, BUN 40, total creatinine kinase 229, CK-MB 4.11, troponin, UA, and toxicology WNL. I personally reviewed patient's EKG demonstrated sinus bradycardia with a ventricular rate of [address] or T-wave changes which is unchanged when compared to EKG from 11/14/2019.? Head/Neck CTA demonstrated?extensive calcified plaque in the common carotid arteries and the carotid bulbs, approximately 50 % stenosis is estimated in the ICA, with pulmonary fibrosis.? Head CT demonstrated no acute intracranial abnormality but was positive or chronic microvascular ischemic disease.? Patient admitted for observation neurological deficit TIA versus stroke rule out with hypertensive urgency. Discharge Providers Provider Date of admission: 11/19/20 00:26 Discharge Date: 11/19/20 Primary care physician: Macrina Vivar PA-C Consults: 11/18/20 23:48 Consult to Occupational Therapy Evaluate & Treat Comment: Tia vs stroke Physician Instructions: Evaluate and treat Consult to Physical Therapy Evaluate & Treat Comment: tia vs stroke Physician Instructions: Evaluate and Treat Consult to Speech Therapy Evaluate & Treat Comment: TIA vs stroke Physician Instructions: Evaluate and treat Discharge provider: Gabriel Kelley MD Summary Hospital Course Discharge Diagnosis: 1. Acute CVA, Left frontal lobe 2. Chronic anemia 3. Chronic hyponatremia 4. COPD 5. Psoriatic arthritis 6. BPH 7. Osteoporosis Hospital Course: Mr. Rosado was admitted with left sided facial droop, altered speech, and vision changes. These nearly completely resolved. Though he continued to have left sided facial droop. Workup was done which showed a negative CT head, CTa of head and neck showed 50% stenosis of ICA. MRI did show small acute/subacute stroke in the left frontal lobe. ECHO did not show any acute process. He was prescribed aspirin, and high dose atorvastatin. He was told to monitor his blood pressure closely and follow up his PCP to ensure good control. He had no evidence of diabetes. He worked with PT/OT and was able to be discharged home. Exam Vital Signs (past 8 hours): Oxygen Delivery Method Room Air Oxygen Flow Rate 0 Narrative Exam Narrative: General:? no distress at this time. Lungs:? clear bilaterally Cardio:?bradycardic rate and regular rhythm without murmur Abdomen:? Soft nontender nondistended Neuro: left sided facial droop Objective Labs Result Diagrams: 11/19/20 07:08 11/19/20 07:08 [facility] Medical History Anemia Arthritis Fan's esophagus Basal cell carcinoma Benign prostatic hyperplasia Bladder neoplasm Carotid stenosis, bilateral Cervical spine degeneration Constipation COPD (chronic obstructive pulmonary disease) Cough Eczema Edema Enlarged prostate Essential tremor Gastroesophageal reflux disease History of bladder cancer History of pneumonia Hyperlipidemia Hypertension Impaired vision Kidney stones Low back pain Lumbar stenosis Osteoarthritis Osteoporosis PSA elevation Psoriasis Psoriatic arthritis Shortness of breath Sinus drainage TIA (transient ischemic attack) Urinary frequency Surgical History History of back surgery History of carpal tunnel release History of knee surgery History of lumbar surgery History of thumb surgery History of total knee arthroplasty History of total right knee replacement Status post left rotator cuff repair Status post right rotator cuff repair Family History Mother Heart disease Father Heart disease Social History marital status: unmarried,single number of children: 5 household members: none lives independently: Yes caregiver/support person: No occupational status: other 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 Rosado came in to the hospital and was found to have a stroke on MRI that was small. He was started on aspirin and plavix. He should take plavix for 3 weeks and then can continue only on aspirin. He had his atorvastatin increased. He should follow up with his PCP within one week and monitor his blood pressures closely. Discharge orders & Medications Prescriptions: New clopidogrel 75 mg Tablet 75 mg PO DAILY Qty: 30 RF: 0 aspirin [Ecotrin Low Strength] 81 mg tablet,delayed release (DR/EC) 81 mg PO DAILY Qty: 30 RF: 0 atorvastatin 80 mg tablet 80 mg PO BEDTIME Qty: 30 RF: 0 Continued alendronate 70 MG tablet 70 mg PO QWEEK Qty: 0 RF: 0 prednisone 1 MG tablet 2 mg PO QAM Qty: 0 RF: 0 tamsulosin [Flomax] 0.4 mg capsule 0.8 mg PO QPM Qty: 0 RF: 0 losartan 50 mg tablet 100 mg PO QDAY Qty: 0 RF: 0 Xeljanz XR 11 mg Tablet Extended Release 24 Hr 11 mg PO DAILY RF: 0 Fish Oil 1,400 mg PO DAILY RF: 0 cbd tinture 1 pump sublingual DAILY RF: 0 fluticasone propion-salmeterol 115-21 mcg/actuation HFA aerosol inhaler 2 puff INHALATION BID RF: 0 vitamin d with calcium 600 mg PO DAILY RF: 0 Follow up/Referrals: Macrina Vivar PA-C [Primary Care Provider] - Diet/Activity/Treatments Diet: Carb-consistent/Diabetic, Low-fat and Low-cholesterol Visit Report/Discharge Packet Instructions: Progress in Stroke Prevention, Strokes: Prevention (Alternative Therapy) Discharge Data Primary Care Provider: Macrina Vivar Attending Provider: Priscila Shannon VTE Deep Vein Thrombosis/Pulmonary Embolism Present on Admission: No MIPS - DC The patient has current or prior documentation of left ventricular ejection fraction (LVEF) less than 40%, or moderate or severely depressed left ventricular systolic function.: No
--- NOTE | 2020-11-19 09:20 | OT.IP.EVAL ---
Past Medical History (Last Reviewed 11/19/20 @ 04:54 by Brigette Anthony DO) Anemia Arthritis Fan's esophagus Basal cell carcinoma Benign prostatic hyperplasia Bladder neoplasm Carotid stenosis, bilateral Cervical spine degeneration Constipation COPD (chronic obstructive pulmonary disease) Cough Eczema Edema Enlarged prostate Essential tremor Gastroesophageal reflux disease History of back surgery History of bladder cancer History of carpal tunnel release History of knee surgery History of lumbar surgery History of pneumonia History of thumb surgery History of total knee arthroplasty History of total right knee replacement Hyperlipidemia Hypertension Impaired vision Kidney stones Low back pain Lumbar stenosis Osteoarthritis Osteoporosis PSA elevation Psoriasis Psoriatic arthritis Shortness of breath Sinus drainage Status post left rotator cuff repair Status post right rotator cuff repair TIA (transient ischemic attack) Urinary frequency Surgical History (Last Reviewed 11/19/20 @ 04:54 by Brigette Anthony DO) History of back surgery History of carpal tunnel release History of knee surgery History of lumbar surgery History of thumb surgery History of total knee arthroplasty History of total right knee replacement Status post left rotator cuff repair Status post right rotator cuff repair Occupational Therapy Inpatient Evaluation/Re-Eval M1 PT/OT-IP Prior Functional Status Start: 11/19/20 09:26 Freq: NEEDED Status: Active Protocol: Document 11/19/20 09:26 [facility] (Rec: 11/19/20 09:44 [facility] [id number]) Medical Review Prior Functional Status Communication Independent Mobility and Gait Pt states does not use a device and tries to walk 2 miles daily. Activities of Daily Living and IADL's Per pt completely independent with all ADl's, IADL's, does his own bills and medication needs. Social History Household Members none Living Arrangements Apartment/Condo Number of Floors (Floors) One Floor Number of Stairs To Enter/Railing? 5 steps with wide rails to enter his apartment. 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-IP Current Condition Start: 11/19/20 09:26 Freq: Status: Active Protocol: Document 11/19/20 09:26 [facility] (Rec: 11/19/20 09:44 [facility] [id number]) Occupational Therapy Current Condition Current Condition Evaluation Date 11/19/20 Treatment Diagnosis TIA vs CVA, left neurological symptoms Diagnosis Onset Date 11/19/20 M3 OT- IP Subjective and Pain Start: 11/19/20 09:26 Freq: Status: Active Protocol: Document 11/19/20 09:26 [facility] (Rec: 11/19/20 09:44 [facility] [id number]) OT- Subjective Occupational Therapy Visit Type Type Initial Evaluation Visit Start Time 08:50 Visit Stop Time 09:20 Total Visit Minutes 30 Occupational Therapy Visit Comments Patient Comments Pt agreed to do OT eval. Patient/Caregiver Goals TO go home. OT Pain Assessment Pain When Pain Assessed At Rest Pain Present Pain Present Pain Reported Location back Intensity 4 Scale Used Numeric (0 - 10) M4 OT- IP ADL's Start: 11/19/20 09:26 Freq: Status: Active Protocol: Document 11/19/20 09:26 [facility] (Rec: 11/19/20 09:44 [facility] [id number]) OT [id number] Comments OT Self-Feeding Comments Not at meal time, no issues anticipated. OT ADL-Grooming General Evaluation Grooming Ability Independent OT ADL-Oral Care General Eval Oral Care Ability Independent OT ADL-Dressing General Eval Lower Body Dressing Ability Independent Comments OT Dressing Comments Pt able to stand and hold to the bed for steadying and able to slip on his shoes. Pt has lifts in his shoes, R>L side. OT ADL-Toileting Comments OT Toileting Comments Pt did not have to go. OT ADL-Bathing Comments OT Bathing Comments Not performed. M5 OT- IP IADL's Start: 11/19/20 09:26 Freq: Status: Active Protocol: Document 11/19/20 09:26 [facility] (Rec: 11/19/20 09:44 [facility] [id number]) OT-Instrumental Activities of Daily Living Home Safety Awareness Awareness of Need for Assistance at Home Good Awareness Ability to Problem Solve Emergency Able to Problem Solve Situations Home Safety Comments Pt able to answer all home safety questions with 100% accuracy. 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 No Deficits Identified M6 OT- IP Functional Cognition Start: 11/19/20 09:26 Freq: Status: Active Protocol: Document 11/19/20 09:26 [facility] (Rec: 11/19/20 09:44 [facility] [id number]) Cognitive Factors Limiting Selfcare Function Cognitive Ability Level of Alertness Alert Patient Orientation Name,Age,Birthday,Month,Date, Year,Day of Week,Place, Situation Attention Span Ability Capable of Focused Attention, Capable of Sustained Attention Ability to Follow Commands Able to Follow Multi-Step Commands Memory Description No Deficits Noted Safety Awareness No Deficits Noted Problem Solving Ability No deficits Noted Executive Function Ability No Deficits Noted Cognitive Comments Cognitive Assessment Comments Pt appears at baseline and intact for cognitive needs. Pt scored 100 seconds on [place] Making Part B which implies mild impairments for visual attentions, task switching, mental flexibility, executive functioning, and speed of processing. Pt's score for his age is at the 70% percentile. OT- Vision and Hearing OT- Hearing Assessment OT- Hearing Assessment WFL OT- Vision Assessment Visual Acuity Glasses All The Time Visual Attentiveness WFL Occular Pursuits WFL Visual Convergence WFL Visual Abel WFL Diplopia Absent Vision Assessment Comments Pt left eyelid drops a little, otherwise pt's vision appears intact. M7 OT- IP Mobility and Balance Start: 11/19/20 09:26 Freq: Status: Active Protocol: Document 11/19/20 09:26 [facility] (Rec: 11/19/20 09:44 [facility] [id number]) OT- Bed Mobility Assessment Rolling Level of Assistance Standby Assistance Supine to Sit Supine to Sit Assist Standby Assistance OT-Transfer Assessment Sit to and From Stand Sit to and from Stand Independent Transfers Transfer Ability Independent,Standby Assistance Technique Transfer Destination Bed,Chair Devices Transfer Assistive Devices Gait Belt Comments Mobility Comments SBA for mobility when pt did not have his shoes on. Pt more steady with his balance with his shoes on. Pt states always wears his shoes at home . Pt able to mobilize safely in the room with his shoes on. One VC to do log rolling for bed mobility needs as pt having back pain. OT- Gait Assessment Comments Gait Ability Comments SBA wihout a device in the room. OT- Balance Assessment Sitting Balance and Reactions Static Sitting Balance Ability Normal Dynamic Sitting Balance Ability Good Standing Balance and Reactions Static Standing Balance Ability Good Dynamic Standing Balance Ability Fair M8 OT- IP Objective Assessments Start: 11/19/20 09:26 Freq: Status: Active Protocol: Document 11/19/20 09:26 [facility] (Rec: 11/19/20 09:44 [facility] [id number]) OT Gross Range of Motion Upper Extremity Range of Motion Assessment Within Functional Limits OT Strength Upper Extremity Strength Assessment Within Functional Limits OT- Coordination Assessment Upper Extremity Finger to Nose Test Within Functional Limits Comments Coordination Comments Arthritic changes in his hands . OT-Muscle Tone Assessment Muscle Tone WNL Yes M9 OT- IP Assessment and Plan Start: 11/19/20 09:26 Freq: Status: Active Protocol: Document 11/19/20 09:26 [facility] (Rec: 11/19/20 09:44 [facility] [id number]) OT Summary Assessment and Plan Potential Rehabilitation Potential Excellent Analytic Complexity at Evaluation Low Summary OT Impairments Pain,Functional Mobility, Bathing Progress Towards Goals Progressing Toward Goals Assessment Summary Pt low complexity and here for TIA vs CVA due to pt's recent left facial drop and left visual changes. Per pt his visual changes have all resolved. Pt appears close to his baseline and to go home when medically stable. Pt to continue to see to see PT for outpt for his back pain. Pt currently goes to [facility] for PT needs. Goals Dressing Goal Independent Toileting Goal Independent Bathing Goal Independent Toilet Transfer Goal Independent Shower Transfer Goal Independent Days to Meet Goals 1 Frequency of Treatment Frequency Of Treatment Once a Day Treatment Plan OT Treatment Plan ADL Training,Functional Mobility,Patient/Family Education,Discharge Planning Other Treatment Recommendations and Next shower if still here Treatment Focus Discharge Recommendations OT Discharge Recommendations Home,Outpatient PT Other Discharge Recommendations Pt currently doing outpt [facility] for his back pain. Home Equipment Needs shower chair? Transportation Needs at Discharge Private Vehicle
[2020-11-19] MEDS: TRAMADOL 50 MG TABLET PO (10:17)
--- NOTE | 2020-11-19 11:36 | PT.IIE ---
Medical History (Last Reviewed 11/19/20 @ 04:54 by Brigette Anthony DO) Anemia Arthritis Fan's esophagus Basal cell carcinoma Benign prostatic hyperplasia Bladder neoplasm Carotid stenosis, bilateral Cervical spine degeneration Constipation COPD (chronic obstructive pulmonary disease) Cough Eczema Edema Enlarged prostate Essential tremor Gastroesophageal reflux disease History of bladder cancer History of pneumonia Hyperlipidemia Hypertension Impaired vision Kidney stones Low back pain Lumbar stenosis Osteoarthritis Osteoporosis PSA elevation Psoriasis Psoriatic arthritis Shortness of breath Sinus drainage TIA (transient ischemic attack) Urinary frequency Physical Therapy Inpatient Evaluation/Re-Eval M1 PT/OT-IP Prior Functional Status Start: 11/19/20 09:26 Freq: NEEDED Status: Active Protocol: Document 11/19/20 11:36 [facility] (Rec: 11/19/20 12:10 AB [id number]) Medical Review Prior Functional Status Medical History Reviewed Yes Communication able to make needs known Mobility and Gait pt stated that he is independent with all mobilities and ambulation without AD Social History Household Members none Living Arrangements Apartment/Condo Number of Floors (Floors) One Floor Number of Stairs To Enter/Railing? 5 steps with bilateral rails to enter Home Environment High Toilet,Tub/Shower Home Equipment Front Wheel Walker,Straight Cane,Hand Held Shower,Grab Bars In Shower Employment Status Retired M2 PT-IP Current Condition Start: 11/19/20 11:57 Freq: NEEDED Status: Active Protocol: Document 11/19/20 11:36 [facility] (Rec: 11/19/20 12:10 AB [id number]) Physical Therapy Current Condition Current Condition Evaluation Date 11/19/20 Treatment Diagnosis CVA; difficulty in walking Onset Date 11/19/20 M3 PT-IP Subjective Start: 11/19/20 11:57 Freq: NEEDED Status: Active Protocol: Document 11/19/20 11:36 [facility] (Rec: 11/19/20 12:10 AB [id number]) Subjective Physical Therapy Visit Type Type Initial Evaluation Visit Start Time 11:36 Visit Stop Time 11:52 Total Visit Minutes 16 Number of TUG HAND Visits 0 Physical Therapy Visit Comments Patient Comments agreeable to do PT Therapy Pain Assessment Pain When Pain Assessed At Rest Pain Present Pain Present Pain Reported Location back Scale Used pain scale not stated; has chronic back pain Description Chronic M4 PT-IP Mobility and Gait Start: 11/19/20 11:57 Freq: NEEDED Status: Active Protocol: Document 11/19/20 11:36 [facility] (Rec: 11/19/20 12:10 [facility] [id number]) PT-Bed Mobility Assessment Supine to Sit Supine to Sit Independent Sit to Supine Sit to Supine Independent PT-Transfer Assessment Sit to and From Stand Sit to and from Stand Standby Assistance Equipment Transfer Assistive Device None,Gait Belt Orthotic/Prosthetic Devices or Brace: No Transfers Transfer Destination Bed Transfer Technique Stand Step Pivot Transfer Ability Level of Assist Standby Assistance Comments Mobility Comments completed sit to stand from chair SBA and step transfer to bed SBA. completed bed mobility mod I. ambulated in the hallway without AD SBA ~ 150 ft. presents with increase lateral trunk lean to the R requiring increase time to recenter trunk with tendency for LLE to cross midline during swing phase resulting in difficulty walking a straight path. pt with gait deviation but without LOB that requires assistance. completed up/down steps initially using 1 rail SBA and then completed again without rails SBA. ambulated back to his room. sat on chair and positioned. call light and table placed within reach. Left pt with the doctor and daughter. Gait Assessment Gait Gait Assistance Required: Standby Assistance Distance (Feet) 150 Able to Maintain Weight Bearing Status Yes During Gait Assistive Devices Assistive Device None,Gait Belt Orthotic/Prosthetic Devices or Brace: No Gait Deviations General Gait Pattern Antalgic,Decreased Stride Length,Decreased Feet Clearance,Lateral Trunk Lean Factors Limiting Gait Function Factors Limiting Gait Function Decreased Activity Tolerance, Decreased Strength,Pain,Poor Balance Stair Climbing Assessment Evaluation Level of Assist On Stairs Standby Assistance Devices Stair Climbing Assistive Devices None Technique/Endurance Stair Climbing Direction Ascend and Descend Stair Climbing Technique Step to Step Number of Steps Climbed 3 Query Text: Stair Climbing Set # Repetitions (reps) 2 PT-Balance Assessment Sitting Balance and Reactions Static Sitting Balance Ability Normal Dynamic Sitting Balance Ability Normal Standing Balance and Reactions Static Standing Balance Ability Good Dynamic Standing Balance Ability Good Device Used without AD M5 PT-IP Objective Assessments Start: 11/19/20 11:57 Freq: NEEDED Status: Active Protocol: Document 11/19/20 11:36 [facility] (Rec: 11/19/20 12:10 AB [id number]) Orientation Orientation/Cognition Level of Alertness Alert Orientation Name,Age,Birthday,Month,Date, Year,Day of Week,Place, Situation Language Function Ability No Deficits Noted Safety Awareness Understands Safety Issues Memory Description No Deficits Noted Gross Range of Motion Lower Extremity ROM Assessment Within Functional Limits Strength Lower Extremity Strength Assessment Within Functional Limits Coordination Assessment Gross Coordination Gross Coordination WNL Sensation Assessment Sensation Gross Sensation WNL Muscle Tone Muscle Tone WNL Yes M6 PT-IP Treatment Start: 11/19/20 11:57 Freq: NEEDED Status: Active Protocol: Document 11/19/20 11:36 AB (Rec: 11/19/20 12:10 AB [id number]) Physical Therapy Treatment Education Education Provided Safety M7 PT-IP Assessment and Plan Start: 11/19/20 11:57 Freq: NEEDED Status: Active Protocol: Document 11/19/20 11:36 [facility] (Rec: 11/19/20 12:10 AB [id number]) PT Summary Assessment and Plan Potential Rehabilitation Potential Good Status of Condition at Evaluation Stable Summary Impairments Pain,Balance,Transfers,Gait, Activity Tolerance Assessment Summary pt requiring SBA with mobility without AD. pt stated that he feels he is back to his normal self. pt has chronic back pain with increase lateral trunk lean to the R affecting standing balance and gait but without any LOB and is safe to go home when medically stable. No further PT intervention indicated at this time. SBA provided for safety while here in the hospital. Frequency of Treatment Frequency Of Treatment Discharge Recommendations To Nursing Amount of Assist Needed Standby Assistance Discharge Recommendations PT Discharge Recommendations Home Transportation Needs at Discharge Private Vehicle
--- NOTE | 2020-11-19 12:12 | ST.IPSCREEN ---
Pt seen for screen secondary to possible. TIA/CVA. Pt denies any difficulty with speech/language swallow. Speech intelligible. Very slight left facial weakness (observed with smile only). Pt was drinking water at bedside. No overt s/sx dysphagia observed. ST not indicated at this time.
--- NOTE | 2020-11-19 12:56 | PC.NURSE ---
Patient ready for d/c to home with daughter. IVs and tele removed. Instructions given on medications, follow up, s/s of stroke, and stroke prevention given. Pt with no questions at this time. Taken down via WC with CANDLE CUTTER and daughter.
--- NOTE | 2020-11-19 14:17 | CM.DANOTE ---
DCP/Assessment: Reviewed chart. Patient is a 85yr old male admitted to [facility] with neurological symptoms. PCP is Macrina Vivar. Primary payor is 1)Medicare 2)[facility]. Met with patient this AM explained CM/SW role. Patient's daughter/Nova at bedside. Patient reports that he resides alone and is completely I with all ADL's. Patient reports that all neurological symptoms have resolved. Daughter indicates that she will be providing transport. P: Home today with no d/c planning needs. [facility] Discharge Planning/Care Management CM Discharge Assessment Start: 11/19/20 14:14 Freq: Status: Active Protocol: Document 11/19/20 14:14 [facility] (Rec: 11/19/20 14:17 [facility] [id number]) Discharge Planning Assessment Assigned Engineer GARRETT Hudson Contact Information Nova Chavarria (daughter) # [phone] Advance Directives? 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 Yes Caregiver for Another No Barriers to Discharge No Whiteboard Updated in Patient Room with Yes name and ext. # of Engineer Review Status In Process Next Review Type Continued Stay Review
== END 2020-11-19 13:15 | disposition home or self-care (01) ==
LOC: ED 23:27 → AC 11-19 00:27
PROVIDERS: Admitting Provider Nurse Practitioner Family; Emergency Provider Emergency Medicine; PCP Student in an Organized Health Care Education/Training Program; Visit Provider Nurse Practitioner Family
DX: I63.9 Cerebral infarction, unspecified (principal); R29.810 Facial weakness; R47.1 Dysarthria and anarthria; H53.9 Unspecified visual disturbance; J44.9 Chronic obstructive pulmonary disease, unspecified; I10 Essential (primary) hypertension; E78.5 Hyperlipidemia, unspecified; K21.9 Gastro-esophageal reflux disease without esophagitis; R29.700 NIHSS score 0; D64.9 Anemia, unspecified; E87.1 Hypo-osmolality and hyponatremia; L40.50 Arthropathic psoriasis, unspecified; M19.90 Unspecified osteoarthritis, unspecified site; N40.0 Benign prostatic hyperplasia without lower urinary tract symptoms; Z20.822 Contact with and (suspected) exposure to COVID-19
CPT/HCPCS: 36415; 70450; 70496; 70498; 70548; 70553; 80048; 80053; 80061; 80305; 81001; 82550; 82553; 82962; 83036; 83735; 83880; 84443; 84484; 85014; 85018; 85025; 85610; 85730; 87635; 93005; 93306; 94640; 94760; 96360; 96361; 97161; 97165; 99285; C9803; G0378; J7613; Q9967

== ENCOUNTER → 2021-12-30 12:30 | Outpatient (CLI) | payer MEDICARE, OTHER, SELFPAY ==
[2021-12-09 11:13] VITALS: BMI 26.4
--- NOTE | 2021-12-30 12:31 | DI.RAD.S_ITS ---
PROCEDURE: XR LUMBAR SPINE MIN 4V INDICATIONS: back pain TECHNIQUE: 5 views of the lumbar spine acquired, including oblique views. COMPARISON: [facility], CR, XR LUMBAR SPINE 2-3V, 09/23/2018, 13:54. FINDINGS: Bones: Convex right thoracolumbar scoliosis. L4-5 interbody fusion and unilateral yin and screw instrumentation. Advanced degenerative disc disease and arthropathy present. Oblique images are essentially nondiagnostic due to scoliotic curvature. Soft tissues: Overlying bowel gas pattern is normal. Atherosclerotic calcification in the abdominal aorta noted without evidence of aneurysm. IMPRESSION: Moderate to severe thoracolumbar dextroscoliosis and associated degenerative disc disease and arthropathy. L4-5 discectomy and fusion with instrumentation paragraph Approved by: Rios Leonardo M.D. on 12/30/2021 at 13:14
== END ==
PROVIDERS: PCP Student in an Organized Health Care Education/Training Program; Referring Provider Physical Medicine & Rehabilitation; Visit Provider Physical Medicine & Rehabilitation
DX: M47.27 Other spondylosis with radiculopathy, lumbosacral region (principal); M47.26 Other spondylosis with radiculopathy, lumbar region; M51.16 Intervertebral disc disorders with radiculopathy, lumbar region; M48.061 Spinal stenosis, lumbar region without neurogenic claudication; M48.062 Spinal stenosis, lumbar region with neurogenic claudication; M41.9 Scoliosis, unspecified; G45.9 Transient cerebral ischemic attack, unspecified; Z98.1 Arthrodesis status
CPT/HCPCS: 72110; 99214

== ENCOUNTER 2022-01-14 10:46 | Outpatient (CLI) | payer MEDICARE, OTHER, SELFPAY ==
[2021-12-09 11:13] VITALS: BMI 26.4
[2022-01-14] VITALS (7 sets, daily range): BP systolic 142–195; BP diastolic 66–83; PULSE 48–54; RESP 13–21; TEMP 36.4; O2SAT 97–100
--- NOTE | 2022-01-14 10:47 | DI.RAD.S_ITS ---
PROCEDURE: PAIN L/S TRANSFORAMINAL INJECT INDICATIONS: SPONDYLOSIS COMPARISON: [facility], XA, PAIN L/S TRANSFORAMINAL INJECT, 08/01/2018, 14:15. [facility], CR, XR LUMBAR SPINE MIN 4V, 12/30/2021, 12:44. FINDINGS: Fluoroscopic spot filming was performed to verify placement of a spinal needle at the L4-L5 level, as labeled on the films. Appropriate location of the needle tip was confirmed by injection of iodinated contrast. IMPRESSION: Intraprocedural examination within normal limits. Dictated by: Wilber Proctor M.D. on 01/14/2022 at 13:06 Approved by: Wilber Proctor M.D. on 01/14/2022 at 13:06
[2022-01-14] MEDS: MIDAZOLAM 2 MG/2 ML VIAL 1 MG IV (12:05)
[2022-01-14] MEDS: IOPAMIDOL 15 ML VIAL 3 ML INJ (12:13)
[2022-01-14] MEDS: BUPIVACAINE 0.25% (PF) VIAL 2 ML INJ (12:13)
[2022-01-14] MEDS: DEXAMETHASONE 10 MG/ML VIAL 20 MG INJ (12:14)
[2022-01-14] MEDS: BETAMETHASONE 30 MG/5 ML MDV 6 MG INJ (12:14)
--- NOTE | 2022-01-14 12:24 | P.PCN_ITS ---
Date/Time/Diagnoses Date of procedure: 01/14/22 Time of procedure: 12:24 Pre-procedure diagnosis: 1. FORAMINAL STENOSIS WITH LE SYMPTOMS Post-procedure diagnosis: same Procedure Notes Procedure: 1. FLUOROSCOPICALLY GUIDED CONTRAST CONTROLLED TRANSFORAMINAL EPIDURAL STEROID INJECTION - LEFT L4/5 Indications: Hardeep is referred by ANNA Vivar for treatment of Foraminal Stenosis with Left LE Symptoms Physician: Jaswinder Franco Total Fluoroscopy time (seconds): 7 Total sedation minutes: 14 Complications: none Procedure in detail & Post-procedure care: FINDINGS Foraminal Nerve Root Compression secondary to disc disease and facet hypertrophy DESCRIPTION OF PROCEDURE Following review of allergy and review of potential side effects and complications, including, but not necessarily limited to, infection, allergic reaction, local tissue breakdown, stroke, temporary or permanent nerve injury, paralysis, and possible , the patient indicated that the patient understood and agreed to proceed. An informed consent document was signed by the patient, witnessed by a nurse, and placed in the patient's chart. Additionally, other treatment options including medications, modalities, and physical therapy were reviewed with the patient. After review of previous anaesthesic history and IV conscious sedation the patient was deemed safe to proceed with today?s procedure with IV conscious sedation as ASA class II designation. Safety time-out was performed to confirm patient ID, procedure to be performed and site of procedure. IV sedation was accomplished with a combination of 1mg of Versed administered by the RN after DO order, titrated to patient comfort during the course of the procedure while the patient remained responsive to all verbal commands In the prone position following sterile prep and drape of the lumbar region, the left L4/5 posterior neuroforamen was identified fluoroscopically. The skin was anesthetized via a 25-gauge 1.5-inch needle with 1% lidocaine solution. At this point, a 25-gauge 3.5-inch spinal needle was atraumatically introduced and advanced under fluoroscopic guidance through the posterior left L4/5 neuroforamen to approximately the anterior aspect of the canal. Depth was confirmed on lateral view. Following negative aspiration, injection of approximately 1.5 cc of Isovue 200 under live fluoroscopy in the AP view confirmed excellent flow along the nerve root, into the epidural space without vascular or intrathecal uptake observed Radiological data, including multiple fluoroscopic views of the lumbosacral spine, reveal a spinal needle at the left L4/5 posterior neuroforamen. Subsequent views show flow of contrast material flowing superiorly and inferiorly along the nerve root confirming epidural flow. Subsequently, a test dose of 1.5 cc of 1% lidocaine solution was administered and patient was observed for two minutes for signs or symptoms of complications, including abdominal pain, shortness of breath, bilateral upper or lower extremity weakness, nausea and vomiting, prior to steroid injection. At this point, a total of 3cc or 20mg of dexamethasone and 6mg of betamethasone was injected without incident. The procedure tolerated the procedure well without signs or symptoms of complications prior to transfer to the recovery area continued monitoring without incident. The patient was then transferred to the recovery area where they were observed for an appropriate time after the injection. The patient reported a VAS score of 7 prior to the procedure and a post- procedure VAS of 1. POST OP INSTRUCTIONS The patient was provided a Pain Log to continue to record their response to the target-specific procedure prior to follow-up visit with their referring physicia n. Additionally, specific post-injection care instructions and a contact number to our office were provided if concerns arise regarding possible complications associated with the procedure are suspected.
== END 2022-01-14 12:40 | disposition home or self-care (01) ==
PROVIDERS: PCP Student in an Organized Health Care Education/Training Program; Referring Provider Physical Medicine & Rehabilitation; Visit Provider Physical Medicine & Rehabilitation
DX: M48.061 Spinal stenosis, lumbar region without neurogenic claudication (principal); M51.16 Intervertebral disc disorders with radiculopathy, lumbar region
CPT/HCPCS: 64483; 99152; J0702; J1100; J2250; J3490